=== PATIENT | male | born 1950 | race Caucasian/White ===

== ENCOUNTER 2024-01-02 23:50 | Inpatient (IN) | payer MEDICARE, SELFPAY ==
[2024-01-02 20:00] VITALS: BP 140/78
[2024-01-02 20:17] VITALS: BMI 29.5
[2024-01-02 20:36] LABS: % Basophils 0.2 % (0-2); % Eosinophils 3.3 % (0-6); % Immature Granulocytes 0.3 % (0-0.5); % Lymphocytes 8.2 % (20.5-51.1); % Monocytes 5.4 % (1.7-9.3); % Neutrophils 82.6 % (42.2-75.2); Absolute Eosinophils 0.2 10^3/uL (0-0.7); Absolute Lymphocytes 0.5 10^3/uL (1.2-3.4); Absolute Monocytes 0.4 10^3/uL (0.1-0.6); Absolute Neutrophils 5.3 10^3/uL (1.4-6.5); Hematocrit 43.2 % (39.0-52.0); Hemoglobin 14.4 g/dL (13.0-18.0); Mean Corp Hgb Conc. 33.3 g/dL (33.0-37.0); Mean Corpuscular Hgb 27.3 pg (27.0-31.0); Mean Platelet Volume 9.7 fL (7.4-10.4); Nucleated Red Blood Cells % 0 % (-); Platelet Count 255 10^3/uL (130-400); Red Blood Cell Count 5.27 10^6/uL (4.70-6.10); Red Cell Dist. Width 14.1 % (11.5-14.5); White Blood Cell Count 6.4 10^3/uL (4.8-10.8)
[2024-01-02 20:37] LABS: Urine Albumin Negative (Neg - Trace); Urine Bilirubin Negative (Negative); Urine Character Slightly Cloudy (Clear); Urine Color Yellow; Urine Glucose Negative (Negative); Urine Ketone Negative (Negative); Urine Leukocyte 2+ (Negative); Urine Nitrite Positive (Negative); Urine Occult Blood Trace (Negative); Urine Specific Gravity 1.015 (<1.030); Urine Urobilinogen Negative (Neg - 1+); Urine pH 6.5 (5.0-9.0)
[2024-01-02 20:43] LABS: Urine Amorphous Seen; Urine Bacteria Moderate (Negative); Urine Red Blood Cell 0-2 /HPF (0-2)
[2024-01-02 20:47] LABS: ALT (SGPT) 29 U/L (0-50); AST (SGOT) 34 U/L (17-59); Albumin 3.4 g/dl (3.5-5.0); Alkaline Phosphatase 129 U/L (38-126); Blood Urea Nitrogen 15 mg/dl (9-20); Calcium 8.7 mg/dl (8.4-10.2); Carbon Dioxide 27 mmol/L (22-30); Chloride 98 mmol/L (98-107); Estimated Creatinine Clearance 105 ml/min; Glucose 103 mg/dl (70-99); Potassium 3.9 mmol/L (3.5-5.1); Sodium 134 mmol/L (135-145); Total Bilirubin 0.7 mg/dl (0.2-1.3); Total Protein 6.1 g/dl (6.3-8.2); eGFR > 60.00
[2024-01-02 21:00] VITALS: BP 127/68
[2024-01-02 22:00] VITALS: BP 128/78
--- NOTE | 2024-01-02 23:33 | ED.GENMED ---
History of Present Illness
General
Chief Complaint: Urinary Symptoms
Source: patient and records
Exam Limitations: none
Time Seen by Provider: 01/02/24 22:23
Nursing documentation reviewed up to this point in time: agreed with
Travel History
Have you had any contact with someone who has COVID-19?: No
Do you have any symptoms of coronavirus? Fever > 100 degrees, chills, cough, shortness of breath, sore throat, loss of taste or smell, muscle aches, or headache?: No
History of Present Illness
History of Present Illness:
Patient is a 73-year-old male with a history of MS and urosepsis who presents to the emergency department complaining of feeling weak with a temperature of 99.4 today and dark urine that is malodorous. Patient admits to decreased appetite. Patient
denies any abdominal or back pain. Patient did have a suprapubic tube that is being converted to a Salmeron catheter. In August the patient presented similarly and ended up with urosepsis. Patient also admits to mild cough and sinus congestion.
Patient for the past few days has been weak and had difficulty moving from his wheelchair to bed which is unusual for him. Patient denies shortness of breath.
Past History
Past History
ED Past Medical History: Asthma, HTN, Hypercholesterolemia and Other (MS, wheelchair bound)
ED Past Surgical History: Appendectomy and Urological (Suprapubic 3-4 years ago)
Social History
Tobacco: Non-smoker
Alcohol: Occasional
Personal:
Living: with family
Review of Systems
Review of Systems
All Other Systems: ROS reviewed and negative except as documented in HPI and ROS
Constitutional: Reports fever, fatigue and chills
EENT: Reports runny nose
Respiratory: Reports cough; Denies trouble breathing
Cardiac: Reports no symptoms
ABD/GI: Reports anorexia; Denies abdominal pain, nausea, vomiting or diarrhea
: Reports dark urine and other (Indwelling Salmeron and malodorous urine)
Musculoskeletal: Reports no symptoms
Skin: Reports no symptoms
Neurological: Reports other (Generalized weakness otherwise unchanged)
Hematologic/Lymphatic: Reports no symptoms
Psychiatric: Reports depression (Patient's had an PR in October); Denies suicidal
Phy Exam
Physical Exam
Physical Exam:
Physical Exam
General: mild distress, alert and appropriate, well nourished, dry mucous membranes
HENT: Normocephalic, supple with no lymphadenopathy, no thyromegaly
Eyes: Clear sclera, conjuctiva without injection
Heart: Regular rhythm and rate. No S3, S4. No murmur. No NVD
Lungs: No respiratory distress, no stridor, lung sounds clear and equal bilaterally
Abdomen: Soft, nontender, no organomegaly, no CVA tenderness, BS good. Patient has indwelling Salmeron catheter and suprapubic wound is healed
Neuro: Unchanged
Skin: no rash
Psychiatric: well kept. interactive and cooperative
Extremities: No cyanosis, tenderness. Bilateral lower leg edema as well as pedal edema right greater than left
Course
Orders/Labs/Results
Orders:
Orders
01/02/24 20:27
Complete Blood Count/With Diff Urgent
Comprehensive Metabolic Panel Urgent
UA Reflex to Culture [Urinalysis Reflex To Culture] Urgent
Date Specimen was Collected: 01/02/24
Time Specimen was Collected: 20:19
Urine Microscopic Reflex Cult Urgent
Urine Culture Urgent
TOMMIE Source: U
Specimen Description:
Date Specimen was Collected: 01/02/24
Time Specimen was Collected: 20:19
01/02/24 23:31
Aztreonam [Azactam] 2,000 mg IV NOW STA
Gentamicin Sulfate [Gentamicin] 180 mg 0.9% Sodium Chloride [Nss] 50 ml IV NOW
01/02/24 23:33
NSS 1000mL Bolus WIDE OPEN 0.9% Sodium Chloride 1000 ml [Nss] 1,000 ml IV BOLUS
01/02/24 23:45
Lactic Acid Q4H
Comment: CANCEL 2nd LACTIC ACID IF 1st LACTIC ACID IS LESS THAN 2
Blood Culture Q30M
TOMMIE Source: Blood/Venous
Specimen Description:
01/03/24 00:15
Blood Culture Q30M
TOMMIE Source: Blood/Venous
Specimen Description:
01/03/24 03:45
Lactic Acid Q4H
Comment: CANCEL 2nd LACTIC ACID IF 1st LACTIC ACID IS LESS THAN 2
Abnormal Lab Results
01/02/24
20:27
Absolute Lymphs (auto) 0.5 L 10^3/uL
(1.2-3.4)
Neutrophils % 82.6 H %
(42.2-75.2)
Lymphocytes % 8.2 L %
(20.5-51.1)
Sodium 134 L mmol/L
(135-145)
Creatinine 0.5 L mg/dL
(0.7-1.3)
Glucose 103 H mg/dl
(70-99)
Alkaline Phosphatase 129 H U/L
(38-126)
Total Protein 6.1 L g/dl
(6.3-8.2)
Albumin 3.4 L g/dl
(3.5-5.0)
Ur Occult Blood Reflex Trace A
(Negative)
Urine Nitrite (Reflex) Positive A
(Negative)
Leukocyte Esterase Rfl 2+ A
(Negative)
Urine Bacteria (Reflex) Moderate A
(Negative)
01/02/24 20:27
01/02/24 20:27
Vital Signs
Initial and Last Documented VS:
Initial Vital Signs
Temp Pulse Resp BP Pulse Ox
98.2 F 88 18 140/78 95
01/02/24 20:00 01/02/24 20:00 01/02/24 20:00 01/02/24 20:00 01/02/24 20:00
Last Documented Vital Signs
Temp Pulse Resp BP Pulse Ox
98.2 F 96 16 128/78 92
01/02/24 20:00 01/02/24 22:30 01/02/24 22:30 01/02/24 22:00 01/02/24 22:30
*Radiology
Radiology exam reviewed: other (na)
*Pulse Oximetry
Patient hypoxic: no
*EKG
Interpreted by ED Provider?: NA
*Document Control Specialist Interpretation
Rate: Document Control Specialist- N/A
*Critical Care Note
Total Time (30-74mins, 75-104mins- exclusive of procedures): Not Applicable
Update Note
Update Note:
Patient does appear to have urinary tract infection. Patient is weak. Concerning patient's past history and cultures positive for Pseudomonas however sensitive only to IV medications will admit the patient.
ED Attending Note
-
Portions of this chart may have been created with voice recognition software.� Occasional wrong word or��sound alike� substitutions may have occurred due to the inherent limitations of voice recognition software.
Discharge Plan
Departure
Patient Disposition: Admit
Date of Disposition: 01/02/24
Time of Disposition: 23:38
Admit to: Telemetry
Admit to doctor: Hospitalist
Presentation/result/management discussed w/ accepting MD/DO: Hospitalist
Patient with high blood pressure during this ER visit?: No
Condition: Serious
Covid-19: Not Applicable
Discharge Problem:
Acute UTI, Catheter-associated urinary tract infection, Multiple sclerosis, Hypotension
Prescriptions:
No Action
furosemide [Lasix] 40 MG tablet
40 mg PO BID@0800,1700
venlafaxine [Effexor XR] 75 MG capsule,extended release 24hr
75 mg PO QPM
venlafaxine [Effexor XR] 150 MG capsule,extended release 24hr
150 mg PO DAILY
baclofen 20 MG tablet
40 mg PO TID
cholecalciferol (vitamin D3) [Vitamin D3] 1,000 UNIT capsule
2,000 unit PO DAILY
rosuvastatin 5 MG tablet
5 mg PO HS
dalfampridine [Ampyra] 10 MG tablet extended release 12 hr
10 mg PO BID
fluticasone propionate 50 mcg/actuation [place],Suspension
2 spray INTRANASAL HS
Theragen Tablet
1 tab PO DAILY
amlodipine [Norvasc] 2.5 mg Tablet
2.5 mg PO HS
zinc sulfate 50 mg zinc (220 mg) Tablet
50 mg PO DAILY
losartan 25 mg Tablet
25 mg PO DAILY
fluticasone propionate [Flovent] 110 mcg/actuation Hfa Aerosol Inhaler
2 puff INHALATION R BID
acetaminophen [Tylenol Extra Strength] 500 mg Tablet
1,000 mg PO Q6HPRN PRN (Reason: fever)
Referrals:
Regulo Bryson DO [Family Provider] -
Interventions
Interventions:
*Risk Screen - Suicide Last Done: 01/02/24 20:17
*General Assessment Last Done: 01/02/24 20:17
*Neglect/Abuse Screening Last Done: 01/02/24 20:17
ED- Fall Risk Assessment Last Done: 01/02/24 21:30
*ED COVID-19 Vaccine History Last Done: 01/02/24 20:17
ED-Male Genitourinary Assessment Last Done: 01/02/24 21:29
--- NOTE | 2024-01-02 23:47 | HPS.HSE ---
Addendum entered and electronically signed by Juan Way MD 01/03/24 00:13:
I saw and examined the patient.
The ZONING ASSISTANT or PA's note was reviewed and I agree with the note.
Comment:
HPI
73M HX MS, WC bound, chr FC pw weakness, malodorous urine that is darker than normal as well as weakness and low-grade fever. BP was low and UA suspicous for UTI. nl WCC.
PMHx
Multiple Sclerosis
Hypertension
Dyslipidemia
Asthma
Depression
Bullous Pemphigoid
PSHx
Appendectomy
Tonsillectomy
Suprapubic Catheter
SHx
Tobacco: Non-smoker
Alcohol: Occasional
Personal:
Living: With Family
Reviewed VS: Hypotensive noted POx low 90s on RA
PE
General: no acute distress
HEENT: dry mucous membranes
Neck : supple
Resp: decreased at bases
Cardiac: S1/S2 RRR No Murmur
GI: Soft, Non Distended
: penile F cath
MS: LE weakness , decreased muscle tone
Neuro: AO x 3
Psych - appropriate
Data
nl CBC
Na 134
nl Cr nl GFR
AKP 129
Alb 3.4
UA: cloudy, POS Nitrite POS LE WCC 6-10 Mod bacteria
UCx sent
Last hospitalist admission 09/09/23 - 09/17/23
DC Dxs:
1. Acute toxic metabolic encephalopathy.
2. Transient seizure.
3. Sepsis due to catheter associated urinary tract infection.
4. AKA.
5. Hyperkalemia.
6. Hyponatremia.
7. Multiple sclerosis.
ASSESSMENT & PLAN
CAUTI/ complicated UTI
Hypotension - clinical dehydrated , also took 2 doses of lasix
Chronic penile chr F cath
HX UTI with Providencia
HX failed attempted SPC placement pe last admission note
- Held Norvasc, Frusemide and Losartan
- IVF
- empiric IV CFTX
- Follow-up UCx
Hypotensive 90/40
Essential HTN
- Held Norvasc, Frusemide and Losartan
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
No active blisters
Multiple Sclerosis HX - stable.
No new symptoms / complaints.
- cont baclofen and Ampyra.
Asthma HX
- cont ICS and PRN albuterol.
Depression
- cont. Effexor.
DVT Prophylaxis: Lovenox
Code Status: DNR per patient
IP TLM
Original Note:
Family Physician
-
Family Physician: Regulo Bryson
Chief Complaint
-
Weakness, malodorous urine from Salmeron catheter
History of Present Illness
73-year-old male complaining of feeling weak with dark malodorous urine at home and a low-grade temp of 99.4. The patient is wheelchair-bound due to MS has a suprapubic catheter chronic. Patient does state he took his 2 doses of Lasix for his
bullous pemphigoid today.
Patient had history of display suprapubic catheter in August was unsuccessful with reinsertion and a Salmeron catheter penile was placed he was treated at that time for suprapubic catheter associated UTI August 2023 Providencia rettgeri with IV
ciprofloxacin then changed to Iv rocephin per ID recommendations. He is due to have a suprapubic catheter reattempted by [facility] urology but he is held off due to his having a recent heart attack. He denies current headache, fever,
chills, chest pain, palpitations, abdominal pain, nausea, vomiting, diarrhea, shortness of breath.
Medical History
Past Medical History
Past Medical History: Reports Other
Additional Past Medical History:
Multiple Sclerosis
Hypertension
Dyslipidemia
Asthma
Depression
Bullous Pemphigoid
Past Surgical History: Reports Other
Additional Past Surgical History:
Appendectomy
Tonsillectomy
Suprapubic Catheter Providencia rettgeri with IV ciprofloxacin per ID recommendations.
Social History
Tobacco: Non-smoker
Alcohol: Occasional
Personal:
Living: With Family
Family History
Family History: Not pertinent
Allergies / Home Medications
Allergies reflects when Allergies were last updated in [facility].
Home Medications with original date entered in [facility]
Allergy/Medication List:
Allergies
Allergy/AdvReac Type Severity Reaction Status Date / Time
NKDA Allergy Pharmacy Uncoded 01/03/24 00:03
to Review
Home Medications
baclofen 20 mg tablet 40 mg PO TID Pain 03/11/22
cholecalciferol (vitamin D3) 25 mcg (1,000 unit) capsule (Vitamin D3) 2,000 unit PO DAILY Supplement 03/11/22
dalfampridine 10 mg tablet,extended release,12 hr (Ampyra) 10 mg PO BID Neurological Condition 03/11/22
furosemide 40 mg tablet (Lasix) 40 mg PO BID@0800,1700 Fluid Retention/Swelling 03/11/22
rosuvastatin 5 mg tablet 5 mg PO HS High Cholesterol 03/11/22
venlafaxine 150 mg capsule,extended release 24 hr (Effexor XR) 150 mg PO DAILY Mental Health/Anxiety 03/11/22
venlafaxine 75 mg capsule,extended release 24 hr (Effexor XR) 75 mg PO QPM Mental Health/Anxiety 03/11/22
fluticasone propionate 50 mcg/actuation nasal spray,suspension 2 spray intranasal HS Allergies 04/23/23
acetaminophen 500 mg tablet (Tylenol Extra Strength) 1,000 mg PO Q6HPRN PRN fever 01/02/24
amlodipine 2.5 mg tablet (Norvasc) 2.5 mg PO HS 01/02/24
fluticasone propionate 110 mcg/actuation HFA aerosol inhaler 2 puff inhalation R BID 01/02/24
losartan 25 mg tablet 25 mg PO DAILY 01/02/24
therapeutic multivitamin 1 tab PO DAILY 01/02/24
zinc sulfate 50 mg zinc (220 mg) tablet 50 mg PO DAILY 01/02/24
Review of Systems
-
History Source: Patient
A 12 point ROS was completed and negative except as noted: Yes
Constitutional: Denies Fever or Chills
EENT: Denies Sore Throat or Runny Nose
Respiratory: Denies Cough or Trouble Breathing
Cardiac: Denies Chest Pain, Diaphoresis, Palpitations or Syncope
Abdomen/GI: Denies Abdominal Pain, Nausea, Vomiting, Diarrhea, Constipated or Bloody Stools
: Reports Salmeron (Dark urine/malodorous per patient)
Musculoskeletal: Reports Edema (Chronic bilateral +1 with history of bullous pemphigoid); Denies Joint Pain
Skin: Denies Itching or Rash
Neurological: Reports Weakness (Generalized); Denies Dizzy or Headache
Endocrine: Reports No Symptoms
Hematologic/Lymphatic: Reports No Symptoms
Psych: Reports Calm
Physical Exam
Vital Signs
Vital Signs
Temp Pulse Resp BP Pulse Ox
98.2 F 96 16 128/78 92
01/02/24 20:00 01/02/24 22:30 01/02/24 22:30 01/02/24 22:00 01/02/24 22:30
Physical Exam
General: Comfortable and Conversant; No Pain or Fever
HEENT: NormoCephalic, Anicteric, Moist mucous membranes, PERRLA, [place] Conjunctivae and No Ptosis
Respiratory: Clear; No Wheezes, Rales or Rhonchi
Cardiac: S1/S2 and Peripheral Edema (Chronic +1 nonpitting); No Murmur, Rub or Gallop
Breast: Deferred by me
GI: Soft, Non Tender, Non Distended, Normal Bowel Sounds and No Hepatosplenomegaly
Rectal: Deferred by Provider
Genito-urinary: Salmeron (Draining yellow in color)
Musculoskeletal: No Clubbing, No Cyanosis, Edema, Left Lower Extremity (+1 nonpitting) and Edema, Right Lower Extremity (+1 nonpitting); No Edema, Left Upper Extremity or Edema, Right Upper Extremity
Skin: Warm and Dry (Areas to lower legs no active bullous pemphigoid lesions)
Neuro: AO x 3, No Motor Deficits, Nonfocal/grossly intact, Cranial Nerves Intact and No Sensory Deficits; No Slurred Speech, Facial Droop or Tremors
Psych: Calm
Laboratory Results
-
01/02/24 20:27
01/02/24 20:27
Laboratory Results
Total Bilirubin 0.7 mg/dl (0.2-1.3) 01/02/24 20:27
AST 34 U/L (17-59) 01/02/24 20:27
ALT 29 U/L (0-50) 01/02/24 20:27
Alkaline Phosphatase 129 U/L (38-126) H 01/02/24 20:27
Impression/Plan
-
Impression/plan:
Admit to telemetry
#Symptomatic UTI
#Hx catheter associated UTI August 2023 Providencia rettgeri
Follow UA/ PEDIATRIC GENETIC COUNSELOR
-IV ceftriaxone
-IV NSS 80 cc times 1 L
-Tylenol as needed
-Follow CBC, BMP
#Multiple sclerosis/with muscle spasms
#Wheelchair-bound
-Continue Ampyra 10 mg twice daily, baclofen 40 mg 3 times daily
#Chronic leg edema 2/2 Bullous pemphigoid
Hold Lasix 40 mg twice daily
# Hypotension likely secondary to diuretic use/HTN�benign
128/78 > 90/79
-HOLD Norvasc 2.5 mg at bedtime
HOLD Losartan 25 mg daily
#HLD
-Continue Crestor 5 mg at bedtime
#Asthma�no acute exacerbation
#Anxiety/depression
-Cont Effexor 75 mg
DVT prophylaxis
Subcu Lovenox
DNR per patient
[2024-01-03] VITALS (8 sets, daily range): BP systolic 114–146; BP diastolic 68–88; PULSE 76–77; O2SAT 93–94; BMI 27.8
[2024-01-03] MEDS: NSS 1000 IV ×2 (00:21→01:39)
[2024-01-03] MEDS: ROCEPHIN 1000 MG IV ×2 (00:44→23:32)
[2024-01-03] MEDS: STERILE WATER FOR INJECTION 10 ML IV ×2 (00:44→23:36)
[2024-01-03 00:52] LABS: Lactic Acid 0.8 mmol/L (0.7-2.0)
--- NOTE | 2024-01-03 01:30 | PTCARENOTE ---
Pt arrived from ED on stretcher to bed. Pt is AAOx3, VSS, w/o complaints of pain, with wide open NS bolus running. Pt is oriented to room resting comfortably with call forrester within reach.
[2024-01-03 04:42] LABS: % Basophils 0.4 % (0-2); % Eosinophils 4.2 % (0-6); % Immature Granulocytes 0.2 % (0-0.5); % Lymphocytes 20.4 % (20.5-51.1); % Monocytes 9.3 % (1.7-9.3); % Neutrophils 65.5 % (42.2-75.2); Absolute Eosinophils 0.2 10^3/uL (0-0.7); Absolute Lymphocytes 0.9 10^3/uL (1.2-3.4); Absolute Monocytes 0.4 10^3/uL (0.1-0.6); Absolute Neutrophils 2.9 10^3/uL (1.4-6.5); Hematocrit 40.3 % (39.0-52.0); Hemoglobin 13.1 g/dL (13.0-18.0); Mean Corp Hgb Conc. 32.5 g/dL (33.0-37.0); Mean Corpuscular Hgb 27.3 pg (27.0-31.0); Mean Platelet Volume 9.6 fL (7.4-10.4); Nucleated Red Blood Cells % 0 % (-); Platelet Count 220 10^3/uL (130-400); Red Cell Dist. Width 13.9 % (11.5-14.5); White Blood Cell Count 4.5 10^3/uL (4.8-10.8)
[2024-01-03 05:05] LABS: Lactic Acid 0.7 mmol/L (0.7-2.0)
[2024-01-03 05:10] LABS: Blood Urea Nitrogen 13 mg/dl (9-20); Calcium 8.1 mg/dl (8.4-10.2); Carbon Dioxide 26 mmol/L (22-30); Chloride 101 mmol/L (98-107); Estimated Creatinine Clearance 105 ml/min; Glucose 92 mg/dl (70-99); Potassium 3.7 mmol/L (3.5-5.1); Sodium 135 mmol/L (135-145); eGFR > 60.00
[2024-01-03] MEDS: COZAAR 25 MG PO (09:13)
[2024-01-03] MEDS: LIORESAL 40 MG PO ×3 (09:13→20:46)
[2024-01-03] MEDS: THERAGRAN 1 TABLET PO (09:13)
[2024-01-03] MEDS: VITAMIN D3 (cholecalciferol) 50 MCG PO (09:13)
[2024-01-03] MEDS: EFFEXOR XR 150 MG PO (09:14)
[2024-01-03] MEDS: ZINC SULFATE 220 MG PO (09:14)
--- NOTE | 2024-01-03 11:57 | W.PN.HOSP.TC ---
Today's Communication/Plan
-
await culture data
dc IVF
iv abx
Assessment / Plan
Assessment / Plan
General: Comfortable and Conversant; No Pain or Fever
HEENT: NormoCephalic, Anicteric, Moist mucous membranes, PERRLA, [place] Conjunctivae and No Ptosis
Respiratory: Clear; No Wheezes, Rales or Rhonchi
Cardiac: S1/S2 and Peripheral Edema (Chronic +1 nonpitting); No Murmur, Rub or Gallop
Breast: Deferred by me
GI: Soft, Non Tender, Non Distended, Normal Bowel Sounds and No Hepatosplenomegaly
Rectal: Deferred by Provider
Genito-urinary: Salmeron (Draining yellow in color)
Musculoskeletal: No Clubbing, No Cyanosis, Edema, Left Lower Extremity (+1 nonpitting) and Edema, Right Lower Extremity (+1 nonpitting); No Edema, Left Upper Extremity or Edema, Right Upper Extremity
Skin: Warm and Dry (Areas to lower legs no active bullous pemphigoid lesions)
Neuro: AO x 3, No Motor Deficits, Nonfocal/grossly intact, Cranial Nerves Intact and No Sensory Deficits; No Slurred Speech, Facial Droop or Tremors
Psych: Calm
#Symptomatic UTI
#Hx catheter associated UTI August 2023 Providencia rettgeri
Follow UA/ PRODUCTION SUPPORT DEVELOPER
-IV ceftriaxone
-DC ivf.
-Tylenol as needed
-Follow CBC, BMP
#Multiple sclerosis/with muscle spasms
#Wheelchair-bound
-Continue Ampyra 10 mg twice daily, baclofen 40 mg 3 times daily
-may require placemnet
#Chronic leg edema 2/2 Bullous pemphigoid
Hold Lasix 40 mg twice daily
# Hypotension likely secondary to diuretic use/HTN�benign
-BP improving
-will restart bp meds in am
#HLD
-Continue Crestor 5 mg at bedtime
#Asthma�no acute exacerbation
#Anxiety/depression
-Cont Effexor 75 mg
DVT prophylaxis
Subcu Lovenox
Anticipated Discharge: 24 - 48 hours
Subjective/Interval History
-
Date of Service: January 03, 2024
states feeling better today
Objective Data
-
Labs:
Laboratory Results
01/03/24
04:31
WBC 4.5 L
Hgb 13.1
Hct 40.3
Plt Count 220
Sodium 135
Potassium 3.7
Chloride 101
Carbon Dioxide 26
BUN 13
Creatinine 0.5 L
Glucose 92
Calcium 8.1 L
Vital Signs:
Vital Signs
Temp Pulse Resp BP Pulse Ox
98.4 F 86 16 137/68 95
01/03/24 07:55 01/03/24 09:13 01/03/24 08:37 01/03/24 09:13 01/03/24 08:37
I&O
01/02/24 01/03/24 01/04/24
06:59 06:59 06:59
Intake Total 480 / 480
Output Total 600 / 600
Balance -120 / -120
--- NOTE | 2024-01-03 15:02 | CM ---
MEt with patient who is admitted from home with chronic galvan. He was current with [facility] RN to change his galvan every 4-5 weeks.
He lives with who is his caregiver. There is ramp into on level home. He has walk in shower with shower seat, rails. Also w/c and 3 in 1 commode.
He would like to have PT OT added to [facility] as he feels he has had a decline in strength from UTI and would like to get back to his baseline.
Referral put in allscripts to [facility].
PCP Dr. Regulo Beck
Pharmacy: [facility]
PLAN: home with [facility] home care assistant PT OT.
[2024-01-03] MEDS: LOVENOX 40 MG SC (17:13)
[2024-01-03] MEDS: EFFEXOR XR 75 MG PO (17:13)
[2024-01-03] MEDS: CRESTOR 5 MG PO (20:46)
[2024-01-03] MEDS: NORVASC 2.5 MG PO (20:46)
[2024-01-03] MEDS: SENOKOT 8.59999999999999964 MG PO (20:47)
[2024-01-04 07:33] LABS: % Basophils 0.8 % (0-2); % Eosinophils 7.5 % (0-6); % Immature Granulocytes 0.5 % (0-0.5); % Monocytes 10.6 % (1.7-9.3); % Neutrophils 56.6 % (42.2-75.2); Absolute Basophils 0.1 10^3/uL (0-0.2); Absolute Eosinophils 0.5 10^3/uL (0-0.7); Absolute Lymphocytes 1.5 10^3/uL (1.2-3.4); Absolute Monocytes 0.7 10^3/uL (0.1-0.6); Absolute Neutrophils 3.6 10^3/uL (1.4-6.5); Hematocrit 40.9 % (39.0-52.0); Hemoglobin 13.2 g/dL (13.0-18.0); Mean Corp Hgb Conc. 32.3 g/dL (33.0-37.0); Mean Corpuscular Hgb 27.5 pg (27.0-31.0); Mean Corpuscular Volume 85.2 fL (80.0-94.0); Mean Platelet Volume 9.9 fL (7.4-10.4); Nucleated Red Blood Cells % 0 % (-); Platelet Count 232 10^3/uL (130-400); White Blood Cell Count 6.3 10^3/uL (4.8-10.8)
[2024-01-04 07:49] VITALS: BP 136/84
[2024-01-04 08:05] LABS: Blood Urea Nitrogen 13 mg/dl (9-20); Calcium 8.7 mg/dl (8.4-10.2); Carbon Dioxide 26 mmol/L (22-30); Chloride 106 mmol/L (98-107); Estimated Creatinine Clearance 105 ml/min; Glucose 92 mg/dl (70-99); Potassium 3.7 mmol/L (3.5-5.1); Sodium 135 mmol/L (135-145); eGFR > 60.00
[2024-01-04] MEDS: LIORESAL 40 MG PO (09:03)
[2024-01-04] MEDS: COZAAR 25 MG PO (09:03)
[2024-01-04] MEDS: ZINC SULFATE 220 MG PO (09:03)
[2024-01-04] MEDS: VITAMIN D3 (cholecalciferol) 50 MCG PO (09:04)
[2024-01-04] MEDS: EFFEXOR XR 150 MG PO (09:04)
[2024-01-04] MEDS: THERAGRAN 1 TABLET PO (09:05)
--- NOTE | 2024-01-04 11:15 | W.PN.HOSP.TC ---
Today's Communication/Plan
-
Continue with IV antibiotic
Await culture data
restart lasix
home once ready
Assessment / Plan
Assessment / Plan
General: Comfortable and Conversant; No Pain or Fever
HEENT: NormoCephalic, Anicteric, Moist mucous membranes, [place] Conjunctivae and No Ptosis
Respiratory: Clear; No Wheezes, Rales or Rhonchi
Cardiac: S1/S2 and Peripheral Edema (Chronic +1 nonpitting); No Murmur, Rub or Gallop
GI: Soft, Non Tender, Non Distended, Normal Bowel Sounds and No Hepatosplenomegaly
Rectal: Deferred by Provider
Genito-urinary: Salmeron (Draining yellow in color)
Musculoskeletal: No Clubbing, No Cyanosis, Edema, Left Lower Extremity (+1 nonpitting) and Edema, Right Lower Extremity (+1 nonpitting); No Edema, Left Upper Extremity or Edema, Right Upper Extremity
Skin: Warm and Dry (Areas to lower legs no active bullous pemphigoid lesions)
Neuro: AO x 3, No Motor Deficits, Nonfocal/grossly intact, Cranial Nerves Intact and No Sensory Deficits; No Slurred Speech, Facial Droop or Tremors
Psych: Calm
#Symptomatic UTI
#Hx catheter associated UTI August 2023 Providencia rettgeri
-IV ceftriaxone
-DC ivf.
-Tylenol as needed
-Blood cutlure negative so far
-await Ucx
#Multiple sclerosis/with muscle spasms
#Wheelchair-bound
-Continue Ampyra 10 mg twice daily, baclofen 40 mg 3 times daily
#Chronic leg edema 2/2 Bullous pemphigoid
-restart Lasix 40 mg twice daily
# Hypotension likely secondary to diuretic use/HTN�benign
-BP improving
-restarted home losartan. cont norvasc.
#HLD
-Continue Crestor 5 mg at bedtime
#Asthma�no acute exacerbation
#Anxiety/depression
-Cont Effexor 75 mg
DVT prophylaxis
Subcu Lovenox
PT/OT-Pt prefers home vn/therapy.
Anticipated Discharge: Within 24 hours
Subjective/Interval History
-
Date of Service: January 04, 2024
feeling better
afebrile
tolerating diet
Objective Data
-
Labs:
Laboratory Results
01/04/24
07:07
WBC 6.3
Hgb 13.2
Hct 40.9
Plt Count 232
Sodium 135
Potassium 3.7
Chloride 106
Carbon Dioxide 26
BUN 13
Creatinine 0.5 L
Glucose 92
Calcium 8.7
Vital Signs:
Vital Signs
Temp Pulse Resp BP Pulse Ox
98.1 F 78 16 136/84 96
01/04/24 07:49 01/04/24 09:03 01/04/24 07:54 01/04/24 09:03 01/04/24 07:54
I&O
01/03/24 01/04/24 01/05/24
06:59 06:59 06:59
Intake Total 480 / 480 2270 / 2270
Output Total 600 / 600 2725 / 2725
Balance -120 / -120 -455 / -455
[2024-01-04 11:45] VITALS: BP 126/78
--- NOTE | 2024-01-04 12:29 | W.DCSUMMARY ---
Discharge Summary
Discharge Data
Date of Admission: 01/02/24
Date of Discharge: 01/04/24
-
Pending Results: No
Hospital Course
74 male past medical history of multiple sclerosis with muscle spasm, wheelchair-bound, chronic leg edema secondary bullous pemphigoid, hyperlipidemia, asthma, anxiety, depression, chronic Salmeron catheter who is presented with weakness and malodorous
urine. Patient was found to be severely hypotensive and a Lasix was held on admission. Patient was started on IV fluid resuscitation. Blood cultures were sent and were found to be negative. Patient was started on antibiotics for suspicious of
urinary tract infection. UA was not impressive. Urine culture with contamination. Patient WBC count within normal limits. Patient was afebrile. White count within normal limits. Antibiotics were discontinued. Patient was read by PT and OT.
Patient would like to go home with VN. Blood pressure meds were restarted. Lasix was restarted. Patient was tolerating diet. Patient be discharged home with VN.
Discharge Plan
-
Patient Disposition: Home with Home Care
Discharge Diagnosis/Procedures: Dehydration
weakness
Condition: Fair
Diet: Regular
Activity: With assistance and As tolerated
Driving Restrictions: Not until seen by your Dr
Other Services: VN
Referrals:
Regulo Bryson DO [Family Provider] - in less than 1 week
Prescriptions:
Continued
furosemide [Lasix] 40 MG tablet
40 mg PO BID@0800,1700
venlafaxine [Effexor XR] 75 MG capsule,extended release 24hr
75 mg PO QPM
venlafaxine [Effexor XR] 150 MG capsule,extended release 24hr
150 mg PO DAILY
baclofen 20 MG tablet
40 mg PO TID
cholecalciferol (vitamin D3) [Vitamin D3] 1,000 UNIT capsule
2,000 unit PO DAILY
rosuvastatin 5 MG tablet
5 mg PO HS
dalfampridine [Ampyra] 10 MG tablet extended release 12 hr
10 mg PO BID
fluticasone propionate 50 mcg/actuation [place],Suspension
2 spray INTRANASAL HS
therapeutic multivitamin Tablet
1 tab PO DAILY
amlodipine [Norvasc] 2.5 mg Tablet
2.5 mg PO HS
zinc sulfate 50 mg zinc (220 mg) Tablet
50 mg PO DAILY
losartan 25 mg Tablet
25 mg PO DAILY
fluticasone propionate 110 mcg/actuation Hfa Aerosol Inhaler
2 puff INHALATION R BID
acetaminophen [Tylenol Extra Strength] 500 mg Tablet
1,000 mg PO Q6HPRN PRN (Reason: fever)
Discharge Orders:
Discharge Patient (As Directed); Ordered 01/04/24
Ordered By: Niraj Harris
--- NOTE | 2024-01-04 13:56 | CM ---
Addendum entered by Laisha Collazo 01/04/24 14:11:
Met with patient at bedside
IMM explained and signed
Plan: discharge to home; son will transport home; patient will resume home health services with [facility]; [facility] notified if discharge date via [facility]
Original Note:
Spoke with patient's via phone; she reported that son would transport patient home via private car
[2024-01-05 19:25] LABS: Hepatitis C Antibody Negative (Negative)
== END 2024-01-04 15:25 | disposition home health service (06) | DRG 699 ==
LOC: 4 EAST ACU 23:50
PROVIDERS: Clinical Nurse Specialist Family Health; Emergency Medicine; ADMITTING PHYSICIAN Internal Medicine; ATTENDING PHYSICIAN Hospitalist; EMERGENCY PHYSICIAN Emergency Medicine; FAMILY PHYSICIAN Family Medicine
DX: T83.511A Infection and inflammatory reaction due to indwelling urethral catheter, initial encounter (principal); L12.0 Bullous pemphigoid; E86.0 Dehydration; N39.0 Urinary tract infection, site not specified; I95.9 Hypotension, unspecified; G35 Multiple sclerosis; E78.00 Pure hypercholesterolemia, unspecified; I10 Essential (primary) hypertension; J45.909 Unspecified asthma, uncomplicated; Y73.2 Prosthetic and other implants, materials and accessory gastroenterology and urology devices associated with adverse incidents; Y92.9 Unspecified place or not applicable; F32.A Depression, unspecified; M62.838 Other muscle spasm; R60.0 Localized edema; F41.9 Anxiety disorder, unspecified; T50.2X5A Adverse effect of carbonic-anhydrase inhibitors, benzothiadiazides and other diuretics, initial encounter; Z66 Do not resuscitate; I25.2 Old myocardial infarction; Z79.51 Long term (current) use of inhaled steroids; Z87.440 Personal history of urinary (tract) infections; Z99.3 Dependence on wheelchair
CPT/HCPCS: 80048; 80053; 81003; 81015; 83605; 85025; 86803; 87040; 87070; 87086; 94640; 96361; 96374; 96375; 97162; 97167; 99284

== ENCOUNTER 2024-04-01 23:48 | Inpatient (IN) | payer MEDICARE, SELFPAY ==
[2024-04-01] VITALS (8 sets, daily range): BP systolic 110–146; BP diastolic 53–101; BMI 28.8
[2024-04-01 15:47] LABS: Urine Albumin Trace (Neg - Trace); Urine Bilirubin Negative (Negative); Urine Character Clear (Clear); Urine Color Yellow; Urine Glucose Negative (Negative); Urine Ketone Negative (Negative); Urine Leukocyte 2+ (Negative); Urine Nitrite Positive (Negative); Urine Occult Blood 3+ (Negative); Urine Urobilinogen Negative (Neg - 1+)
[2024-04-01 16:03] LABS: Urine Squamous Cell 0-2 /LPF (Few)
[2024-04-01 16:05] LABS: Urine Bacteria Many (Negative); Urine Red Blood Cell 26-30 /HPF (0-2); Urine White Cell 16-20 /HPF (0-5)
--- NOTE | 2024-04-01 20:16 | ED.GENMED ---
History of Present Illness
General
Chief Complaint: Musculo-Skeletal Complaint
Source: patient
Time Seen by Provider: 04/01/24 19:12
Travel History
Have you had any contact with someone who has COVID-19?: No
Do you have any symptoms of coronavirus? Fever > 100 degrees, chills, cough, shortness of breath, sore throat, loss of taste or smell, muscle aches, or headache?: No
History of Present Illness
History of Present Illness:
73-year-old male with past medical history of MS, seizure, hypertension, hyperlipidemia, neurogenic bladder with chronic indwelling Salmeron catheter presenting to the emergency department for evaluation for 2 separate issues. First concern was a
possible fall about a week and a half ago resulting in right knee pain and persistent edema. Patient states that overall he is not really sure how he injured the knee and does not really remember falling but is unsure as to how he injured the knee.
Patient states that he is mostly wheelchair-bound but will often pivot out of bed and use supportive devices to get into his wheelchair. He denies any weakness or numbness to his legs and is denying any headaches, vomiting or visual changes.
Second concern is patient believes he may have a urinary tract infection because his told him that his urine smells funny or than normal. He notes that he was recently at [facility] for urinary tract infection and ultimately ended up
being admitted for sepsis.
Past History
Past History
ED Past Medical History: Asthma, HTN, Hypercholesterolemia and Other (MS, wheelchair bound)
ED Past Surgical History: Appendectomy, Tonsilectomy and Urological (Suprapubic 3-4 years ago)
Social History
Tobacco: Non-smoker
Alcohol: Occasional
Drug: None
Personal:
Living: with family
Review of Systems
Review of Systems
All Other Systems: ROS reviewed and negative except as documented in HPI and ROS
Phy Exam
Physical Exam
Physical Exam:
GENERAL: Alert , in no apparent distress
Head: Normocephalic atraumatic
EYE: Clear conjunctiva
NECK: Supple
ENT: o/p clr, mmm.
CARDIAC: Regular rate and rhythm .
LUNGS: Clear breath sounds bilaterally, no acute respiratory distress, no wheezes/rales/rhonchi
ABDOMEN: Soft, without focal tenderness, no r/g, no cvat, suprapubic tube in place
NEUROLOGICAL: Alert and oriented but does seem to answer questions slowly but appropriately
SKIN: Warm and dry, skin intact.
MUSCULOSKELETAL: No edema, well perfused.
PSYCH: Normal and appropriate interaction.
Scores
Heart Failure Risk
Heart Failure Risk Score: Not Applicable
Heart Score for Chest Pain Patients
STEMI patient?: Not applicable
Withdrawal Assessment of Alcohol
Withdrawal Assessment Completed?: Not applicable
Course
Orders/Labs/Results
Orders:
Orders
04/01/24 15:36
Knee, Right 4 or More Views [CR Knee- Right 4 Or More View*] Urgent
Comment:
Reason For Exam: pain
04/01/24 15:39
Urinalysis Reflex To Culture Urgent
Date Specimen was Collected: 04/01/24
Time Specimen was Collected: 15:38
Urine Microscopic Reflex Cult Urgent
Urine Culture Urgent
TOMMIE Source: U
Specimen Description:
Date Specimen was Collected: 04/01/24
Time Specimen was Collected: 15:38
04/01/24 20:40
Basic Metabolic Panel Urgent
Complete Blood Count/With Diff Urgent
Lactic Acid Q4H
Comment: CANCEL 2nd LACTIC ACID IF 1st LACTIC ACID IS LESS THAN 2
Blood Culture Q30M
TOMMIE Source: Blood/Venous
Specimen Description:
04/01/24 21:14
CefTRIAXone [Rocephin] 1,000 mg IV NOW STA
04/01/24 22:42
Blood Culture Q30M
TOMMIE Source: Blood/Venous
Specimen Description:
04/01/24 23:45
Lactic Acid Q4H
Comment: CANCEL 2nd LACTIC ACID IF 1st LACTIC ACID IS LESS THAN 2
Abnormal Lab Results
04/01/24 04/01/24
15:39 20:40
WBC 14.6 H 10^3/uL
(4.8-10.8)
RBC 4.08 L 10^6/uL
(4.70-6.10)
Hgb 10.4 L g/dL
(13.0-18.0)
Hct 32.8 L %
(39.0-52.0)
MCH 25.5 L pg
(27.0-31.0)
MCHC 31.7 L g/dL
(33.0-37.0)
RDW 14.7 H %
(11.5-14.5)
Plt Count 486 H 10^3/uL
(130-400)
Abs Immat Gran (auto) 0.1 H 10^3/uL
(0-0.05)
Absolute Neuts (auto) 11.6 H 10^3/uL
(1.4-6.5)
Absolute Monos (auto) 1.0 H 10^3/uL
(0.1-0.6)
Neutrophils % 79.3 H %
(42.2-75.2)
Lymphocytes % 10.3 L %
(20.5-51.1)
Sodium 131 L mmol/L
(135-145)
Creatinine 0.5 L mg/dL
(0.7-1.3)
Glucose 105 H mg/dl
(70-99)
Ur Occult Blood Reflex 3+ A
(Negative)
Urine Nitrite (Reflex) Positive A
(Negative)
Leukocyte Esterase Rfl 2+ A
(Negative)
Urine RBC 26-30 A /HPF
(0-2)
Urine WBC (Reflex) 16-20 A /HPF
(0-5)
Urine Bacteria (Reflex) Many A
(Negative)
04/01/24 20:40
04/01/24 20:40
Vital Signs
Initial and Last Documented VS:
Initial Vital Signs
Temp Pulse Resp BP Pulse Ox
99.3 F 100 20 130/80 97
04/01/24 15:25 04/01/24 15:25 04/01/24 15:25 04/01/24 15:25 04/01/24 15:25
Last Documented Vital Signs
Temp Pulse Resp BP Pulse Ox
99.2 F 105 20 120/101 92
04/01/24 16:00 04/01/24 16:00 04/01/24 16:00 04/01/24 22:00 04/01/24 21:45
Procedures
Splinting/Sling Placement
Right Leg:
Procedure completed by: Harpal
Pre-splint extermity exam: neurovascular intact
Type of splint: posterior long leg
Splint material: other (4in orthoglass)
Splint checked by provider?: Yes
Normal distal neurovascular exam?: Yes
MDM/Problems Addressed
Differential Diagnosis Includes:
Contusion, fracture, sprain of the right knee urinary tract infection, recurrent sepsis
MDM/Problems Addressed:
73-year-old male presenting emergency department for evaluation for a multitude of concerns. X-ray of the knee was ordered from triage and ultimately does confirm suspicion for fracture of the proximal tibia and fibula. Will consult with
orthopedics for this based off location of the injury but due to patient's already poor mobility may not be a great candidate for surgery. Urinalysis was also sent which reveals nitrite positive urine, 2+ leukocytes, 16-20 WBCs. Patient is
borderline tachycardic and has a low-grade temperature of 99.3 so lab work was added by me. Disposition pending. Will also contact patient's as he has no family present with him.
Chronic conditions affecting care: Neurological disorder
Acute Exacerbation and/or Progression of Chronic Illness: Neurological disorder
*Radiology
Radiology exam reviewed: preliminary read by ED provider (Proximal tib-fib fracture)
*Pulse Oximetry
Patient hypoxic: no
*Critical Care Note
Total Time (30-74mins, 75-104mins- exclusive of procedures): Not Applicable
Data Reviewed
Review of Other/Old Records Reveals: Labs and Records
Source: patient, records and spouse
Patient Management
Discussion with other providers: Hospitalist and Rubber Goods Supervisor
Escalation/DeEscalation of care consider admission/obs:
7:20 PM: Case was discussed with on-call orthopedic surgeon, Dr. Cook, he states would not recommend surgery but would put patient in a long-leg posterior splint and follow-up as an outpatient if patient is discharged.
I called and spoke to patient's who states that patient fell on Friday while trying to get up from his commode. She has been having a difficult time caring for him as he already has baseline ambulatory difficulties but with his now known
fracture she has been having significantly more difficulties caring for him. Patient also has a urinary tract infection. He had a recent admission at [facility] due to UTI sepsis. He has a 99.3 temperature here, 14,000 white blood cell count source
and it does not appear that patient would be safe to be discharged home. Will admit for further management of urinary tract infection. Orthopedics can be consulted as needed for the fracture. Hospitalist team is aware and accepts for continued
evaluation and treatment.
ED Attending Note
-
Portions of this chart may have been created with voice recognition software.� Occasional wrong word or��sound alike� substitutions may have occurred due to the inherent limitations of voice recognition software.
Discharge Plan
Departure
Patient Disposition: Admit
Date of Disposition: 04/01/24
Time of Disposition: 21:16
Presentation/result/management discussed w/ accepting MD/DO: Hospitalist
Discharge Problem:
Acute UTI, Closed fracture of proximal end of right tibia, Closed fracture of proximal end of right fibula
Prescriptions:
No Action
furosemide [Lasix] 40 MG tablet
40 mg PO BID@0800,1700
venlafaxine [Effexor XR] 75 MG capsule,extended release 24hr
75 mg PO QPM
venlafaxine [Effexor XR] 150 MG capsule,extended release 24hr
150 mg PO DAILY
baclofen 20 MG tablet
40 mg PO TID
cholecalciferol (vitamin D3) [Vitamin D3] 1,000 UNIT capsule
2,000 unit PO DAILY
rosuvastatin 5 MG tablet
5 mg PO HS
dalfampridine [Ampyra] 10 MG tablet extended release 12 hr
10 mg PO BID
fluticasone propionate 50 mcg/actuation [place],Suspension
2 spray INTRANASAL HS
therapeutic multivitamin Tablet
1 tab PO DAILY
amlodipine [Norvasc] 2.5 mg Tablet
2.5 mg PO HS
zinc sulfate 50 mg zinc (220 mg) Tablet
50 mg PO DAILY
losartan 25 mg Tablet
25 mg PO DAILY
fluticasone propionate 110 mcg/actuation Hfa Aerosol Inhaler
2 puff INHALATION R BID
acetaminophen [Tylenol Extra Strength] 500 mg Tablet
1,000 mg PO Q6HPRN PRN (Reason: fever)
Referrals:
Regulo Bryson DO [Family Provider] -
Interventions
Interventions:
*Risk Screen - Suicide Last Done: 04/01/24 15:25
*General Assessment Last Done: 04/01/24 15:25
*Neglect/Abuse Screening Last Done: 04/01/24 15:25
ED-Musculoskeletal Assessment Last Done: 04/01/24 16:19
Discharge Date and Time
Print Language: SALVADOREAN
[2024-04-01 20:48] LABS: % Basophils 0.5 % (0-2); % Eosinophils 2.6 % (0-6); % Immature Granulocytes 0.4 % (0-0.5); % Lymphocytes 10.3 % (20.5-51.1); % Monocytes 6.9 % (1.7-9.3); % Neutrophils 79.3 % (42.2-75.2); Absolute Basophils 0.1 10^3/uL (0-0.2); Absolute Eosinophils 0.4 10^3/uL (0-0.7); Absolute Immature Granulocytes 0.1 10^3/uL (0-0.05); Absolute Lymphocytes 1.5 10^3/uL (1.2-3.4); Absolute Neutrophils 11.6 10^3/uL (1.4-6.5); Hematocrit 32.8 % (39.0-52.0); Hemoglobin 10.4 g/dL (13.0-18.0); Mean Corp Hgb Conc. 31.7 g/dL (33.0-37.0); Mean Corpuscular Hgb 25.5 pg (27.0-31.0); Mean Corpuscular Volume 80.4 fL (80.0-94.0); Mean Platelet Volume 9.3 fL (7.4-10.4); Nucleated Red Blood Cells % 0 % (-); Platelet Count 486 10^3/uL (130-400); Red Blood Cell Count 4.08 10^6/uL (4.70-6.10); Red Cell Dist. Width 14.7 % (11.5-14.5); White Blood Cell Count 14.6 10^3/uL (4.8-10.8)
[2024-04-01 21:00] LABS: Lactic Acid 0.9 mmol/L (0.7-2.0)
[2024-04-01 21:04] LABS: Blood Urea Nitrogen 16 mg/dl (9-20); Calcium 9.3 mg/dl (8.4-10.2); Carbon Dioxide 26 mmol/L (22-30); Chloride 98 mmol/L (98-107); Estimated Creatinine Clearance 105 ml/min; Glucose 105 mg/dl (70-99); Potassium 4.2 mmol/L (3.5-5.1); Sodium 131 mmol/L (135-145); eGFR > 60.00
[2024-04-01] MEDS: ROCEPHIN 1000 MG IV (22:43)
--- NOTE | 2024-04-01 23:58 | HPS.HSE ---
Family Physician
-
Family Physician: Regulo Bryson
Chief Complaint
-
R Knee Pain
History of Present Illness
Patient is a 73y M with PMH significant for multiple sclerosis, hypertension and depression who presents to ED complaining of right knee pain and swelling. Patient states that his symptoms have been present and persistent for the past week or
so. He notes pain with weight bearing, pivoting and from pressure against the arms of chairs / seats / in the car / etc.
Patient states that he suffered a fall at home about 2 weeks ago. He states that he was transferring from the toilet to the bed when he fell backwards. He did not land on the knee, but notes that his leg was somewhat twisted / under the bed at the
time of the fall. He has noted the increased pain in the knee since that time. No other apparent trauma or injury.
Patient is wheelchair bound due to his MS. He transfers from chair to furniture, toilet, etc - usually without much assistance. He drives using hand controls.
He also has an indwelling suprapubic catheter and notes that his thought his urine this AM smelled malodorous.
Medical History
Past Medical History
Past Medical History: Reports Other
Additional Past Medical History:
Multiple Sclerosis
Hypertension
Dyslipidemia
Asthma
Depression
Bullous Pemphigoid
Past Surgical History: Reports Other
Additional Past Surgical History:
Appendectomy
Tonsillectomy
Suprapubic Catheter
Social History
Tobacco: Non-smoker
Alcohol: Occasional
Personal:
Living: With Family
Family History
Family History: Not pertinent
Allergies / Home Medications
Allergies reflects when Allergies were last updated in [facility].
Home Medications with original date entered in [facility]
Allergy/Medication List:
Allergies
Allergy/AdvReac Type Severity Reaction Status Date / Time
Sulfa (Sulfonamide Allergy Unknown Verified 04/01/24 15:24
Antibiotics)
Home Medications
baclofen 20 mg tablet 40 mg PO TID Pain 03/11/22
cholecalciferol (vitamin D3) 25 mcg (1,000 unit) capsule (Vitamin D3) 2,000 unit PO DAILY Supplement 03/11/22
dalfampridine 10 mg tablet,extended release,12 hr (Ampyra) 10 mg PO BID Neurological Condition 03/11/22
furosemide 40 mg tablet (Lasix) 40 mg PO BID@0800,1700 Fluid Retention/Swelling 03/11/22
rosuvastatin 5 mg tablet 5 mg PO HS High Cholesterol 03/11/22
venlafaxine 150 mg capsule,extended release 24 hr (Effexor XR) 150 mg PO DAILY Mental Health/Anxiety 03/11/22
venlafaxine 75 mg capsule,extended release 24 hr (Effexor XR) 75 mg PO QPM Mental Health/Anxiety 03/11/22
fluticasone propionate 50 mcg/actuation nasal spray,suspension 2 spray intranasal HS Allergies 04/23/23
acetaminophen 500 mg tablet (Tylenol Extra Strength) 1,000 mg PO Q6HPRN PRN fever 01/02/24
amlodipine 2.5 mg tablet (Norvasc) 2.5 mg PO HS 01/02/24
fluticasone propionate 110 mcg/actuation HFA aerosol inhaler 2 puff inhalation R BID 01/02/24
losartan 25 mg tablet 25 mg PO DAILY 01/02/24
therapeutic multivitamin 1 tab PO DAILY 01/02/24
zinc sulfate 50 mg zinc (220 mg) tablet 50 mg PO DAILY 01/02/24
Review of Systems
-
History Source: Patient
A 12 point ROS was completed and negative except as noted: Yes
Constitutional: Reports Fever and Fatigue; Denies Chills
EENT: Denies Sore Throat
Respiratory: Denies Cough or Trouble Breathing
Cardiac: Denies Chest Pain or Palpitations
Abdomen/GI: Reports Constipated; Denies Abdominal Pain, Nausea, Vomiting, Diarrhea or Bloody Stools
: Reports Suprapubic Tube and Other (Malodor); Denies Dysuria or Flank Pain
Musculoskeletal: Reports Joint Pain (R knee)
Neurological: Reports Weakness; Denies Dizzy or Headache
Psych: Reports Depression; Denies Anxiety
Physical Exam
Vital Signs
Vital Signs
Temp Pulse Resp BP Pulse Ox
99.2 F 105 20 110/53 94
04/01/24 16:00 04/01/24 16:00 04/01/24 16:00 04/01/24 23:00 04/01/24 23:01
Physical Exam
General: Other (73y M in no acute distress.)
HEENT: Moist mucous membranes and PERRLA
Respiratory: Clear; No Wheezes, Rales or Rhonchi
Cardiac: S1/S2 and Regular Rhythm; No Murmur
GI: Soft, Non Tender, Non Distended and Normal Bowel Sounds
Genito-urinary: Other (SPC site without bleeding or discharge.)
Musculoskeletal: Other (RLE with ADITYA wrap / immobilizer in place. Pos tenderness R knee.)
Neuro: AO x 3
Laboratory Results
-
04/01/24 20:40
04/01/24 20:40
Laboratory Results
Lactic Acid Cancelled 04/01/24 23:45
Impression/Plan
-
A/P: Patient is a 73y M with PMH significant for MS, hypertension and depression who presents to ED complaining of R knee pain x 1-2 weeks.
Right Tib-Fib Fracture
- Admit for further evaluation and treatment.
- Likely non-operative management as fracture is non-displaced and patient is wheelchair bound at baseline.
- Ortho evaluation.
- Immobilize, pain control, etc.
Chronic SPC
CAUTI
- UA suspicious for UTI and reportedly with change in urine quality noted today.
- IV abx for now pending culture data.
Chronic Constipation
- Patient states that last BM was several days ago.
- Intensify bowel regimen and follow for results.
Multiple Sclerosis
- Stable. No new symptoms / complaints.
- Continue baclofen and Ampyra.
Benign Hypertension
- Stable. Continue outpatient med regimen.
Asthma without Acute Exacerbation
- Stable. Continue ICS and PRN albuterol.
Depression
- Stable. Continue Effexor.
DVT Prophylaxis: Foot pumps
Code Status: DNR
[2024-04-02] VITALS (7 sets, daily range): BP systolic 102–168; BP diastolic 60–90; BMI 28.1
--- NOTE | 2024-04-02 01:30 | PTCARENOTE ---
Addendum entered by Marvin Lopez RN 04/02/24 03:09:
Patient admitted from ED. Patient AAO x3, on RA, in no acute distress. Patient has order for bedrest for right tib-fib fracture. Patient came up to floor with right leg in splint and juan diego wrap, chronic suprapubic catheter. Patient able to wiggles
toes on command and has +2 b/l pedal pulses, +sensation. Patient resting comfortably in bed, oriented to room and call forrester is within reach.
Original Note:
Patient admitted from ED. Patient AAO x3, on RA, in no acute distress. Patient has order for bedrest for right tib-fib fracture. Patient came up to floor with right leg in splint and juan diego wrap, chronic suprapubic catheter. Patient able to wiggles
toes on command and has +2 b/l pedal pulses. Patient resting comfortably in bed, oriented to room and call forrester is within reach.
[2024-04-02] MEDS: EFFEXOR XR 75 MG PO ×2 (01:38→16:31)
[2024-04-02] MEDS: LIORESAL PO (01:38)
[2024-04-02] MEDS: LIORESAL 40 MG PO ×4 (01:40→21:32)
[2024-04-02] MEDS: TYLENOL 1000 MG PO ×3 (02:49→16:31)
[2024-04-02 07:36] LABS: Hematocrit 32.4 % (39.0-52.0); Hemoglobin 10.3 g/dL (13.0-18.0); Mean Corp Hgb Conc. 31.8 g/dL (33.0-37.0); Mean Corpuscular Hgb 25.2 pg (27.0-31.0); Mean Corpuscular Volume 79.4 fL (80.0-94.0); Mean Platelet Volume 9.5 fL (7.4-10.4); Platelet Count 522 10^3/uL (130-400); Red Blood Cell Count 4.08 10^6/uL (4.70-6.10); White Blood Cell Count 11.9 10^3/uL (4.8-10.8)
[2024-04-02 08:06] LABS: Blood Urea Nitrogen 15 mg/dl (9-20); Calcium 9.2 mg/dl (8.4-10.2); Carbon Dioxide 28 mmol/L (22-30); Chloride 98 mmol/L (98-107); Estimated Creatinine Clearance 105 ml/min; Glucose 97 mg/dl (70-99); Potassium 4.5 mmol/L (3.5-5.1); Sodium 131 mmol/L (135-145); eGFR > 60.00
[2024-04-02] MEDS: EFFEXOR XR 150 MG PO (08:06)
[2024-04-02] MEDS: VITAMIN D3 (cholecalciferol) 50 MCG PO (08:06)
[2024-04-02] MEDS: COZAAR 25 MG PO (08:06)
[2024-04-02] MEDS: DESENEX/MITRAZOL/ZEASORB 1 APPLIC TOPICAL ×2 (11:17→21:32)
--- NOTE | 2024-04-02 12:21 | CM ---
CM updated Kristina from [facility] with admission.
--- NOTE | 2024-04-02 12:23 | W.PN.HOSP.TC ---
Today's Communication/Plan
-
Urology consult
Orthopedics consult
Bowel regimen
PT/OT
Assessment / Plan
Assessment / Plan
Gen-AAOx3, NAD
HEENT-NC, AT, anicteric, clear oral mm
Neck-supple
CV-reg, no M, +S1/S2
Lungs-clear B/L
Abd-soft, NT, ND
Ext-no edema, right lower extremity Charles bandage immobilizer
Musculoskeletal-no cyanosis, clubbing
Skin-warm and dry
Neuro-grossly non-focal
Psych-calm, cooperative
Subacute traumatic right tib-fib fracture - await Orthopedics consult. Apparently patient fell 2 weeks ago at home and has had mild pain and discomfort since. X-ray reviewed.
Asymptomatic bacteriuria -unclear if true urinary tract infection versus colonization. Currently on empiric ceftriaxone. Urine culture shows greater than 100,000 E. coli, sensitivity pending. Afebrile, mild leukocytosis noted, improving.
Chronic urinary retention/neurogenic bladder -due to MS. He is due for suprapubic catheter exchange, urology consulted.
Microcytic anemia -unknown acuity but hemoglobin was normal in January. Monitor hemoglobin for now, will need outpatient evaluation.
Chronic constipation -bowel regimen.
Multiple sclerosis -stable. At baseline he does not ambulate, does transfer from bed to chair and vice versa.
Essential hypertension -blood pressure somewhat elevated. On amlodipine, furosemide, losartan at home. Recheck blood pressure after meds.
Mild intermittent asthma -stable.
Depression
DNR
Anticipated Discharge: 24 - 48 hours
Subjective/Interval History
-
Date of Service: April 02, 2024
Patient seen and examined. Minimal right knee pain. No other complaints.
Objective Data
-
Labs:
Laboratory Results
04/02/24
07:14
WBC 11.9 H
Hgb 10.3 L
Hct 32.4 L
Plt Count 522 H
Sodium 131 L
Potassium 4.5
Chloride 98
Carbon Dioxide 28
BUN 15
Creatinine 0.5 L
Glucose 97
Calcium 9.2
Vital Signs:
Vital Signs
Temp Pulse Resp BP Pulse Ox
98.6 F 95 16 168/72 97
04/02/24 08:10 04/02/24 08:38 04/02/24 08:38 04/02/24 08:10 04/02/24 08:38
I&O
04/01/24 04/02/24 04/03/24
06:59 06:59 06:59
Intake Total 480 / 480
Output Total 900 / 900
Balance -420 / -420
Review of Systems
-
History Source: Patient
All other systems: Reviewed and negative
--- NOTE | 2024-04-02 12:29 | CM ---
Momo is known to [facility] and would like to be referred back for care at discharge if able to return home. He was recently at [facility], but if SNF needed he would prefer [facility]. Ortho and Urology consults pending.
Momo is interested in a w/c that has an elevating (R) leg rest to help alleviate pain, however he is not sure how he will navigate at home with this. He will discuss with PT for suggestions. Momo has previously ordered a wheelchair from the
internet; Medicare has not paid for a w/c, so Momo may wish to use his benefit for a new w/c.
Dr. Bryson in [place] is [facility] - [phone]
[facility] is preferred by Momo:
--- NOTE | 2024-04-02 16:22 | W.PN.UPDATE ---
Update Note
Progress Note Update
Pt seen and chart reviewed
With well aligned R proximal Tibia/Fibula fractures
Pt is without pain and is a nonambulator
For now would recommmend Nonoperative treatment
However, if the fracture shifts position in followup, then we may need to consider operative treatment
Please have F/U with me as outpt in about 7-10m days
thanks
GGMD
--- NOTE | 2024-04-02 17:25 | W.PN.URO.CBU ---
Today's Communication / Plan
-
have galvan cath kit to bedside
Assessment / Plan
-
please have kit for 16 fr galvan cath change to bedside fr sp tube change ain am this is a regular galvan kit no differnt than if placing i urethra
Diagnosis
-
Date of Service: April 02, 2024
-
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
Post Op Day:
Subjective
-
no gu complaints
Objective
-
Vital Signs
Temp Pulse Resp BP Pulse Ox
97.9 F 98 18 102/60 97
04/02/24 15:27 04/02/24 15:27 04/02/24 15:27 04/02/24 15:27 04/02/24 15:27
Intake and Output
04/01/24 04/02/24 04/03/24
06:59 06:59 06:59
Intake Total 480 / 480
Output Total 900 / 900
Balance -420 / -420
Intake:
Oral fluids 480 / 480
Output:
Suprapubic output 900 / 900
Laboratory Results
04/02/24 07:14
04/02/24 07:14
Review of Systems
-
: Difficulty Voiding
Physical Exam
-
General - well developed, well nourished, no acute distress
Chest - clear bilaterally
Abdomen - soft, non-tender, positive bowel sounds, no CVAT, no incisional pain or distentionsp tub clean and dry
Genitalia - normal
Rectal - normal
Skin - warm & dry with no rash
Neuro - AOx3, no motor deficits
Extremities - no clubbing, no cyanosis, no edema
Incision - clean, dry
Dressing - clean, dry, intact
Care Review
Data Reviewed
Discussed with: Hospitalist and Nursing
[2024-04-02] MEDS: CRESTOR 5 MG PO (21:32)
[2024-04-02] MEDS: NORVASC 2.5 MG PO (21:32)
[2024-04-02] MEDS: ROCEPHIN 1000 MG IV (21:32)
[2024-04-02] MEDS: STERILE WATER FOR INJECTION 10 ML IV (21:33)
[2024-04-03] MEDS: TYLENOL 1000 MG PO ×3 (03:49→23:12)
[2024-04-03 05:49] LABS: % Basophils 1.1 % (0-2); % Eosinophils 7.1 % (0-6); % Immature Granulocytes 1.2 % (0-0.5); % Lymphocytes 19.4 % (20.5-51.1); % Monocytes 9.9 % (1.7-9.3); % Neutrophils 61.3 % (42.2-75.2); Absolute Basophils 0.1 10^3/uL (0-0.2); Absolute Eosinophils 0.6 10^3/uL (0-0.7); Absolute Immature Granulocytes 0.1 10^3/uL (0-0.05); Absolute Lymphocytes 1.8 10^3/uL (1.2-3.4); Absolute Monocytes 0.9 10^3/uL (0.1-0.6); Absolute Neutrophils 5.5 10^3/uL (1.4-6.5); Hematocrit 30.2 % (39.0-52.0); Hemoglobin 9.5 g/dL (13.0-18.0); Mean Corp Hgb Conc. 31.5 g/dL (33.0-37.0); Mean Corpuscular Volume 79.5 fL (80.0-94.0); Mean Platelet Volume 9.3 fL (7.4-10.4); Nucleated Red Blood Cells % 0 % (-); Platelet Count 469 10^3/uL (130-400); Red Cell Dist. Width 14.8 % (11.5-14.5); White Blood Cell Count 9.1 10^3/uL (4.8-10.8)
[2024-04-03 06:07] LABS: Blood Urea Nitrogen 15 mg/dl (9-20); Carbon Dioxide 29 mmol/L (22-30); Chloride 101 mmol/L (98-107); Estimated Creatinine Clearance 105 ml/min; Glucose 108 mg/dl (70-99); Potassium 4.1 mmol/L (3.5-5.1); Sodium 134 mmol/L (135-145); eGFR > 60.00
[2024-04-03 07:10] VITALS: BP 139/78
[2024-04-03] MEDS: EFFEXOR XR 150 MG PO (09:25)
[2024-04-03] MEDS: COZAAR 25 MG PO (09:25)
[2024-04-03] MEDS: DESENEX/MITRAZOL/ZEASORB 1 APPLIC TOPICAL (09:26)
[2024-04-03] MEDS: LIORESAL 40 MG PO ×3 (09:26→21:12)
[2024-04-03] MEDS: VITAMIN D3 (cholecalciferol) 50 MCG PO (09:26)
--- NOTE | 2024-04-03 11:11 | W.PN.HOSP.TC ---
Today's Communication/Plan
-
Await urology input
Discharge planning
Assessment / Plan
Assessment / Plan
Gen-AAOx3, NAD
HEENT-NC, AT, anicteric, clear oral mm
Neck-supple
CV-reg, no M, +S1/S2
Lungs-clear B/L
Abd-soft, NT, ND
Ext-no edema, right lower extremity Charles bandage immobilizer
Musculoskeletal-no cyanosis, clubbing
Skin-warm and dry
Neuro-grossly non-focal
Psych-calm, cooperative
Subacute traumatic right tib-fib fracture - await Orthopedics consult. Apparently patient fell 2 weeks ago at home and has had mild pain and discomfort since. X-ray reviewed. Orthopedics recommends nonoperative management for now, outpatient
follow-up in 7 to 10 days. Nonweightbearing to right lower extremity.
E. coli UTI due to suprapubic catheter -leukocytosis resolved. Afebrile. Pansensitive on culture. Currently on IV Rocephin.
Chronic urinary retention/neurogenic bladder -due to MS. He is due for suprapubic catheter exchange, urology consulted. Catheter to be exchanged today.
Microcytic anemia -unknown acuity but hemoglobin was normal in January. Monitor hemoglobin for now, will need outpatient evaluation.
Chronic constipation -bowel regimen.
Multiple sclerosis -stable. At baseline he does not ambulate, does transfer from bed to chair and vice versa.
Essential hypertension -stable. On amlodipine, furosemide, losartan at home.
Mild intermittent asthma -stable.
Depression
DNR
Dispo -anticipate discharge to SNF. Updated on the phone and she cannot handle him at home. Updated case management. Anticipate discharge when bed available.
Anticipated Discharge: 24 - 48 hours
Subjective/Interval History
-
Date of Service: April 03, 2024
Patient seen and examined. Pain is under control at rest. No other complaints.
Objective Data
-
Labs:
Laboratory Results
04/03/24
05:09
WBC 9.1
Hgb 9.5 L
Hct 30.2 L
Plt Count 469 H
Sodium 134 L
Potassium 4.1
Chloride 101
Carbon Dioxide 29
BUN 15
Creatinine 0.6 L
Glucose 108 H
Calcium 9.0
Vital Signs:
Vital Signs
Temp Pulse Resp BP Pulse Ox
98.1 F 75 14 139/78 96
04/03/24 07:10 04/03/24 09:25 04/03/24 08:14 04/03/24 09:25 04/03/24 08:14
I&O
04/02/24 04/03/24 04/04/24
06:59 06:59 06:59
Intake Total 480 / 480 600 / 600
Output Total 900 / 900 2550 / 2550
Balance -420 / -420 -1950 / -1950
Review of Systems
-
History Source: Patient
All other systems: Reviewed and negative
--- NOTE | 2024-04-03 13:25 | W.PN.URO.CBU ---
Today's Communication / Plan
-
no new chnges
Assessment / Plan
-
Chnged so tube upsized to 18 fr 10 cc balloon at bedside
Diagnosis
-
Date of Service: April 03, 2024
-
Patient Diagnosis:
Post Op Day:
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
Post Op Day:
Subjective
-
no new problems
Objective
-
Vital Signs
Temp Pulse Resp BP Pulse Ox
98.1 F 75 14 139/78 96
04/03/24 07:10 04/03/24 09:25 04/03/24 08:14 04/03/24 09:25 04/03/24 12:11
Intake and Output
04/02/24 04/03/24 04/04/24
06:59 06:59 06:59
Intake Total 480 / 480 600 / 600
Output Total 900 / 900 2550 / 2550
Balance -420 / -420 -1950 / -1950
Intake:
Oral fluids 480 / 480 600 / 600
Output:
Urine, Salmeron 1400 / 1400
Suprapubic output 900 / 900 1150 / 1150
Laboratory Results
04/03/24 05:09
04/03/24 05:09
Review of Systems
-
: Difficulty Voiding
Physical Exam
-
General - well developed, well nourished, no acute distress
Chest - clear bilaterally
Abdomen - soft, non-tender, positive bowel sounds, no CVAT, no incisional pain or distention
Genitalia - normal
Rectal - normal
Skin - warm & dry with no rash
Neuro - AOx3, no motor deficits
Extremities - no clubbing, no cyanosis, no edema
Incision - clean, dry
Dressing - clean, dry, intact
Counseling
-
changed sp tube
Care Review
Data Reviewed
Discussed with: Nursing
[2024-04-03 15:17] VITALS: BP 136/60; PULSE 98; O2SAT 94
[2024-04-03 15:18] VITALS: BP 136/60
[2024-04-03] MEDS: EFFEXOR XR 75 MG PO (17:08)
[2024-04-03 21:07] VITALS: BP 133/71
[2024-04-03] MEDS: NORVASC 2.5 MG PO (21:12)
[2024-04-03] MEDS: CRESTOR 5 MG PO (21:12)
[2024-04-03] MEDS: ROCEPHIN 1000 MG IV (21:13)
[2024-04-03] MEDS: STERILE WATER FOR INJECTION 10 ML IV (21:13)
[2024-04-03] MEDS: DESENEX/MITRAZOL/ZEASORB TOPICAL (21:14)
[2024-04-03 23:36] VITALS: BP 136/79
[2024-04-04 07:05] VITALS: BP 152/77
[2024-04-04] MEDS: EFFEXOR XR 150 MG PO (09:09)
[2024-04-04] MEDS: VITAMIN D3 (cholecalciferol) 50 MCG PO (09:09)
[2024-04-04] MEDS: COZAAR 25 MG PO (09:09)
[2024-04-04] MEDS: LIORESAL 40 MG PO ×3 (09:09→22:25)
[2024-04-04] MEDS: DESENEX/MITRAZOL/ZEASORB 1 APPLIC TOPICAL ×2 (09:10→22:24)
--- NOTE | 2024-04-04 09:58 | W.PN.URO.CBU ---
Today's Communication / Plan
-
per hospitalst
Assessment / Plan
-
Chnged so tube upsized to 18 fr 10 cc balloon at bedside draining well
Diagnosis
-
Date of Service: April 04, 2024
-
Patient Diagnosis:
Post Op Day:
Patient Diagnosis:
Post Op Day:
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
Post Op Day:
Subjective
-
sp tube no complaints
Objective
-
Vital Signs
Temp Pulse Resp BP Pulse Ox
98.3 F 98 16 152/77 97
04/04/24 07:05 04/04/24 09:09 04/04/24 08:11 04/04/24 09:09 04/04/24 08:11
Intake and Output
04/03/24 04/04/24 04/05/24
06:59 06:59 06:59
Intake Total 600 / 600 1680 / 1680
Output Total 2550 / 2550 950 / 950
Balance -1950 / -1950 730 / 730
Intake:
Oral fluids 600 / 600 1680 / 1680
Output:
Urine, Salmeron 1400 / 1400
Suprapubic output 1150 / 1150 950 / 950
Laboratory Results
04/03/24 05:09
04/03/24 05:09
Review of Systems
-
: Difficulty Voiding
Physical Exam
-
General - well developed, well nourished, no acute distress
Chest - clear bilaterally
Abdomen - soft, non-tender, positive bowel sounds, no CVAT, no incisional pain or distention
Genitalia - normal
Rectal - normal
Skin - warm & dry with no rash
Neuro - AOx3, no motor deficits
Extremities - no clubbing, no cyanosis, no edema
Incision - clean, dry
Dressing - clean, dry, intact
Care Review
Data Reviewed
Discussed with: Hospitalist
--- NOTE | 2024-04-04 12:10 | CM ---
Patient with Hx Multiple sclerosis with Dx Subacute traumatic right tib-fib fracture, UTI due to suprapubic catheter. NWB RLE. PT & OT recommend skilled rehab.
Met with patient yesterday and again today x2, and spoke with today by phone x2. Discussed short term rehab at SNF - patient/ agreed to 4 SNF preferences: first choice [facility], 2nd choice [facility], 3rd choice [facility], 4th
choice [facility]. Patient seems to be obsessing and worried about why he needs to go to rehab despite extensive explanations, concerned about the goals of rehab and whether he will improve. Repeated explanations provided. Nurse also reporting
patient upset at intervals about having to go to rehab. feels she cannot care for patient at home at this time, having had a heart attack about a month ago, and does not want patient to d/c to home at this time as she would need to pay
privately for a caregiver, and she expressed concern about patient's fall risk. She will be coming in today with their son.
SNF referrals placed.
Message from Alc[facility] Varg[facility]; no bed available this weekend.
Spoke with Lolita Almanza [facility]; she cannot offer a bed as they are full with no openings anticipated.
Plan follow up SNF referrals.
--- NOTE | 2024-04-04 12:13 | W.PN.HOSP.TC ---
Addendum entered and electronically signed by Manpreet Schulz DO 04/04/24 14:14:
I left a voicemail for patient's to call me back.
Original Note:
Today's Communication/Plan
-
Discharge planning
Assessment / Plan
Assessment / Plan
Gen-AAOx3, NAD
HEENT-NC, AT, anicteric, clear oral mm
Neck-supple
CV-reg, no M, +S1/S2
Lungs-clear B/L
Abd-soft, NT, ND
Ext-no edema, right lower extremity Charles bandage immobilizer
Musculoskeletal-no cyanosis, clubbing
Skin-warm and dry
Neuro-grossly non-focal
Psych-calm, cooperative
Subacute traumatic right tib-fib fracture - await Orthopedics consult. Apparently patient fell 2 weeks ago at home and has had mild pain and discomfort since. X-ray reviewed. Orthopedics recommends nonoperative management for now, outpatient
follow-up in 7 to 10 days. Nonweightbearing to right lower extremity.
By definition he has osteoporosis. Discussed with patient, will need outpatient treatment.
E. coli UTI due to suprapubic catheter -leukocytosis resolved. Afebrile. Pansensitive on culture. Change to oral antibiotics today.
Chronic urinary retention/neurogenic bladder -due to MS. SPT tube changed by urology.
Microcytic anemia -unknown acuity but hemoglobin was normal in January. Monitor hemoglobin for now, will need outpatient evaluation.
Chronic constipation -bowel regimen.
Multiple sclerosis -stable. At baseline he does not ambulate, does transfer from bed to chair and vice versa.
Essential hypertension -stable. On amlodipine, furosemide, losartan at home.
Mild intermittent asthma -stable.
Depression
DNR
Dispo -anticipate discharge to SNF. Updated on the phone and she cannot handle him at home. Updated case management. Anticipate discharge when bed available.
Anticipated Discharge: Within 24 hours
Subjective/Interval History
-
Date of Service: April 04, 2024
Patient seen/examined, complaining of muscle spasms in legs.
Objective Data
-
Vital Signs:
Vital Signs
Temp Pulse Resp BP Pulse Ox
98.3 F 98 16 152/77 97
04/04/24 07:05 04/04/24 09:09 04/04/24 08:11 04/04/24 09:09 04/04/24 08:11
I&O
04/03/24 04/04/24 04/05/24
06:59 06:59 06:59
Intake Total 600 / 600 1680 / 1680
Output Total 2550 / 2550 950 / 950
Balance -1950 / -1950 730 / 730
Review of Systems
-
History Source: Patient
All other systems: Reviewed and negative
[2024-04-04] MEDS: TYLENOL 1000 MG PO ×2 (13:45→22:30)
[2024-04-04 15:20] VITALS: BP 132/60
[2024-04-04] MEDS: EFFEXOR XR 75 MG PO (17:09)
[2024-04-04] MEDS: CRESTOR 5 MG PO (22:25)
[2024-04-04] MEDS: OMNICEF 300 MG PO (22:25)
[2024-04-04] MEDS: NORVASC 2.5 MG PO (22:37)
[2024-04-04 23:15] VITALS: BP 145/69
[2024-04-05 08:21] VITALS: BP 150/78
[2024-04-05] MEDS: TYLENOL 1000 MG PO (08:33)
[2024-04-05] MEDS: OMNICEF 300 MG PO (08:34)
[2024-04-05] MEDS: COZAAR 25 MG PO (08:34)
[2024-04-05] MEDS: LIORESAL 40 MG PO (08:35)
[2024-04-05] MEDS: EFFEXOR XR 150 MG PO (08:35)
[2024-04-05] MEDS: VITAMIN D3 (cholecalciferol) 50 MCG PO (08:35)
[2024-04-05] MEDS: DESENEX/MITRAZOL/ZEASORB 1 APPLIC TOPICAL (08:36)
--- NOTE | 2024-04-05 09:46 | CM ---
CM called and VM left for [facility] pending bed availability, VM left for [facility] and CM spoke with [facility] awaiting update.
--- NOTE | 2024-04-05 10:05 | CM ---
Addendum entered by Kala Garza 04/05/24 10:33:
Patient accepted bed at [facility], patient completed IMM and signed form placed on chart. Patient for ambulance transfer. Please call report to [phone]/fax [phone]
Original Note:
CM called to patient and update provided re available beds, [facility] accepted patient and patient physician indicated that he is ready for discharge. Patient indicated that she wanted to talk to patient and physician to discuss options as
well. CM called to [facility] x2 and no response, [facility] looking at options. CM will continue to follow for discharge planning needs.
Plan; SNF today; [facility] pending acceptance
--- NOTE | 2024-04-05 10:17 | W.PN.HOSP.TC ---
Today's Communication/Plan
-
dc to SNF today
Assessment / Plan
Assessment / Plan
Assessment:
Subacute traumatic right tib-fib fracture
- Apparently patient fell 2 weeks ago at home and has had mild pain and discomfort since. X-ray reviewed. Orthopedics recommends nonoperative management for now, outpatient follow-up in 7 to 10 days. Nonweightbearing to right lower extremity.
- by definition he has osteoporosis. Discussed with patient, will need outpatient treatment.
E. coli UTI due to suprapubic catheter - leukocytosis resolved. Afebrile. Pansensitive on culture. Change to oral antibiotics today.
Chronic urinary retention/neurogenic bladder -due to MS. SPT tube changed by urology.
Microcytic anemia -unknown acuity but hemoglobin was normal in January. Monitor hemoglobin for now, will need outpatient evaluation.
Chronic constipation -bowel regimen.
Multiple sclerosis -stable. At baseline he does not ambulate, does transfer from bed to chair and vice versa.
Essential hypertension -stable. On amlodipine, furosemide, losartan at home.
Mild intermittent asthma -stable.
Depression
DNR
Dispo- DC to SNF today.
More than 30 minutes spent in discharge including
Final examination of the patient
Summarizing hospital stay
Instructions for continuing care to all relevant caregivers
Preparation of discharge records, prescriptions, and referral forms
Total time spent (in minutes): 41
Anticipated Discharge: Today
Subjective/Interval History
-
Date of Service: April 05, 2024
reports some RLE muscle spasms
Objective Data
-
Vital Signs:
Vital Signs
Temp Pulse Resp BP Pulse Ox
98.4 F 86 18 150/78 94
04/05/24 08:21 04/05/24 08:21 04/05/24 08:21 04/05/24 08:21 04/05/24 08:21
I&O
04/04/24 04/05/24 04/06/24
06:59 06:59 06:59
Intake Total 1680 / 1680 2160 / 2160
Output Total 950 / 950 2525 / 2525
Balance 730 / 730 -365 / -365
Physical Exam
-
General: No Apparent Distress
HEENT: Normocephalic and Atraumatic
Respiratory: Negative Wheezes
Cardiac: Regular Rhythm
GI: Soft
Genito-urinary: No Costovertebral Tender
Musculoskeletal: Other (RLE dressing)
Neuro: AO x 3
Hematologic / Lymphatic: No Lymphadenopathy
Psych: Calm
Data Reviewed
-
Total Time Spent with Patient (in minutes): 41
Labs: Labs Reviewed by me
--- NOTE | 2024-04-05 10:21 | W.DS.TRANS ---
DC Summary - [facility]
-
Discharge Instructions:
Discharge Diagnosis/Procedures Right proximal tibial and fibular fractures, E.
Coli UTI
Diet Regular
Activity Other activity
Additional Activity No weightbearing on right lower extremity
Driving Restrictions No driving
Bathing Restrictions None
Other Services VN,PT
Instructions:
Stand-Alone Forms:
Changes to Home Medications: No
Discharge Medications:
DC Medications w/original date entered in [employer]
cholecalciferol (vitamin D3) 25 mcg (1,000 unit) capsule (Vitamin D3) 2,000 unit PO DAILY Supplement 03/11/22
dalfampridine 10 mg tablet,extended release,12 hr (Ampyra) 10 mg PO BID Neurological Condition/MS 03/11/22
furosemide 40 mg tablet (Lasix) 40 mg PO BID@0800,1700 Fluid Retention/Swelling 03/11/22
rosuvastatin 5 mg tablet 5 mg PO HS High Cholesterol 03/11/22
venlafaxine 150 mg capsule,extended release 24 hr (Effexor XR) 150 mg PO DAILY Mental Health/Anxiety 03/11/22
venlafaxine 75 mg capsule,extended release 24 hr (Effexor XR) 75 mg PO QPM Mental Health/Anxiety 03/11/22
fluticasone propionate 50 mcg/actuation nasal spray,suspension 2 spray intranasal HS Allergies 04/23/23
acetaminophen 500 mg tablet (Tylenol Extra Strength) 1,000 mg PO Q6HPRN PRN fever 01/02/24
amlodipine 2.5 mg tablet (Norvasc) 2.5 mg PO HS Blood Pressure 01/02/24
fluticasone propionate 110 mcg/actuation HFA aerosol inhaler 2 puff inhalation R BID Lung/Breathing Issues 01/02/24
losartan 25 mg tablet 25 mg PO DAILY Blood Pressure 01/02/24
therapeutic multivitamin 1 tab PO DAILY Supplement 01/02/24
zinc sulfate 50 mg zinc (220 mg) tablet 50 mg PO DAILY Supplement 01/02/24
baclofen 20 mg tablet 40 mg (2 x 20 mg) PO TID Pain #100 tabs 04/05/24
cefdinir 300 mg capsule 300 mg PO Q12 #10 caps 04/05/24
Home Medication Changes
Pending Results: No
Total time spent discharging patient (in min): 41
[2024-04-05 11:24] VITALS: BP 142/65
== END 2024-04-05 12:49 | DRG 543 ==
LOC: 4 EAST ACU 23:48
PROVIDERS: Hospitalist; Physician Assistant Medical; ADMITTING PHYSICIAN Hospitalist; ATTENDING PHYSICIAN Internal Medicine; CONSULT PHYSICIAN Orthopaedic Surgery Hand Surgery; CONSULT PHYSICIAN Specialist; EMERGENCY PHYSICIAN Emergency Medicine; FAMILY PHYSICIAN Family Medicine
DX: M80.061A Age-related osteoporosis with current pathological fracture, right lower leg, initial encounter for fracture (principal); L12.0 Bullous pemphigoid; T83.510A Infection and inflammatory reaction due to cystostomy catheter, initial encounter; N39.0 Urinary tract infection, site not specified; G35 Multiple sclerosis; Y84.6 Urinary catheterization as the cause of abnormal reaction of the patient, or of later complication, without mention of misadventure at the time of the procedure; K59.09 Other constipation; E78.00 Pure hypercholesterolemia, unspecified; I10 Essential (primary) hypertension; F32.A Depression, unspecified; J45.20 Mild intermittent asthma, uncomplicated; D50.9 Iron deficiency anemia, unspecified; N31.9 Neuromuscular dysfunction of bladder, unspecified; W18.11XA Fall from or off toilet without subsequent striking against object, initial encounter; R60.9 Edema, unspecified; Z66 Do not resuscitate; Z99.3 Dependence on wheelchair; Z87.440 Personal history of urinary (tract) infections; Z91.81 History of falling; Y93.89 Activity, other specified; Y92.002 Bathroom of unspecified non-institutional (private) residence as the place of occurrence of the external cause; Z79.51 Long term (current) use of inhaled steroids; Z88.2 Allergy status to sulfonamides; Z74.01 Bed confinement status
CPT/HCPCS: 29505; 73564; 80048; 81003; 81015; 83605; 85025; 85027; 87040; 87070; 87086; 87088; 87186; 94640; 96374; 97163; 97167; 97530; 99285

== ENCOUNTER 2024-04-06 02:29 | Emergency (ER) | payer MEDICARE, SELFPAY ==
[2024-04-06] VITALS (10 sets, daily range): BP systolic 124–174; BP diastolic 77–113; BMI 30.5
--- NOTE | 2024-04-06 03:40 | EDRN ---
Pt says he was in the hospital for few days with fx R tib-fib. Pt went to [facility] for rehab Friday morning. Pt has MS and says the goal is to get him to be able to transfer himself into a wheelchair. Pt notes increased pain in RLE. Pt feels
more spasms in the R upper leg and does not feel his pain is improving. Pt reports he was given tylenol for pain before he was sent to the ED and does not think it helped. Pt denies cp, sob, abd pain, n/v, fever/chills/cough. RLE is propped on
two pillows, splint intact. Toes pink, good refill and sensation.
--- NOTE | 2024-04-06 05:02 | ED.GENMED ---
History of Present Illness
<ALE Cooper - Last Filed: 04/06/24 06:32>
General
Chief Complaint: Generalized Pain
Source: patient
Exam Limitations: none
Time Seen by Provider: 04/06/24 04:21
Nursing documentation reviewed up to this point in time: agreed with
Travel History
Have you had any contact with someone who has COVID-19?: No
Do you have any symptoms of coronavirus? Fever > 100 degrees, chills, cough, shortness of breath, sore throat, loss of taste or smell, muscle aches, or headache?: No
History of Present Illness
History of Present Illness:
This is a 73 year old male with recent history of tib/fib fracture (posterior leg splint), MS, chronic UTIs (suprapubic catheter) who presents to the ED with complaint of worsening pain and spasms with R lower extremity x1 day. He was discharged
yesterday from [facility] with diagnosis of R proximal tibial and fibular fractures with nonoperative management and E. Coli UTI on PO Cefdinir. Patient's R lower extremity is currently splinted. He states he gets spasms of his LE that have been
getting worse since discharge. He was discharged to [facility] for PT and given Tylenol for pain. He denies chest pain, shortness of breath, headache, or fever.
Past History
<ALE Cooper - Last Filed: 04/06/24 06:32>
Past History
ED Past Medical History: Asthma, HTN, Hypercholesterolemia and Other (MS, wheelchair bound)
ED Past Surgical History: Appendectomy, Tonsilectomy and Urological (Suprapubic 3-4 years ago)
Social History
Tobacco: Non-smoker
Alcohol: Occasional
Drug: None
Personal:
Living: with family
Review of Systems
<ALE Cooper - Last Filed: 04/06/24 06:32>
Review of Systems
Allergies reviewed?: Yes
All Other Systems: Not applicable
Constitutional: Reports no symptoms
EENT: Reports no symptoms
Respiratory: Reports no symptoms
Cardiac: Reports no symptoms
ABD/GI: Reports no symptoms
: Reports no symptoms
Musculoskeletal: Reports other (R lower extremity pain and spasms)
Skin: Reports no symptoms
Neurological: Reports no symptoms
Endocrine: Reports no symptoms
Hematologic/Lymphatic: Reports no symptoms
Psychiatric: Reports no symptoms
Phy Exam
<ALE Cooper - Last Filed: 04/06/24 06:32>
General Physical Exam
General Presentation: well appearing and no apparent distress
General Skin: warm and dry
General Habitus: normal
General Mental: alert
General Hydration: appears well hydrated
ENT Exam
ENT Exam: EOMI, pharynx normal, neck supple and normocephalic
Eye Exam
Eye Exam: PERRL, cornea clear and conjunctiva normal
Cardiovascular Exam
Cardiovascular Exam: regular rate/rhythm, no edema, no murmur and normal peripheral pulses
Pulmonary Exam
Pulmonary Exam: lungs clear, no respiratory distress, no rales, no crackles, no rhonchi, no stridor, no wheezing and no cough
Gastrointestinal Exam
Gastrointestinal Exam: normal bowel sounds, non tender, soft, no organomegaly, no pulsatile mass and non distended
Neurological Exam
Neurological Exam: alert, oriented x3, no motor deficits and other (Answers questions slowly but appropriately )
Musculoskeletal Exam
Musculoskeletal Exam: full ROM, no edema and other (Long-leg posterior splint on RLE)
Skin Exam
Skin Exam: normal color, warm/dry, no rash and no petechia
Psychiatric Exam
Psychiatric Exam: normal mood/affect
Course
<ALE Cooper - Last Filed: 04/06/24 06:32>
Vital Signs
Initial and Last Documented VS:
Initial Vital Signs
Temp Pulse Resp BP Pulse Ox
98.0 F 74 18 147/77 95
04/06/24 02:34 04/06/24 02:34 04/06/24 02:34 04/06/24 02:34 04/06/24 02:34
Last Documented Vital Signs
Temp Pulse Resp BP Pulse Ox
98.0 F 85 17 124/91 95
04/06/24 02:34 04/06/24 06:00 04/06/24 06:00 04/06/24 06:00 04/06/24 06:00
<Paul Robin DO - Last Filed: 04/06/24 07:19>
Vital Signs
Initial and Last Documented VS:
Initial Vital Signs
Temp Pulse Resp BP Pulse Ox
98.0 F 74 18 147/77 95
04/06/24 02:34 04/06/24 02:34 04/06/24 02:34 04/06/24 02:34 04/06/24 02:34
Last Documented Vital Signs
Temp Pulse Resp BP Pulse Ox
98.0 F 85 17 124/91 95
04/06/24 02:34 04/06/24 06:00 04/06/24 06:00 04/06/24 06:00 04/06/24 06:00
<ALE Cooper - Last Filed: 04/06/24 06:32>
MDM/Problems Addressed
Differential Diagnosis Includes:
Pain secondary to tib/fib fracture vs improper splint placement, MS exacerbation, compartment syndrome
MS exacerbation considered due to patient's history of MS, however less likely to due recent fracture injury. Compartment syndrome on differentials but normal dorsalis pedis pulse, no poikilothermia, paresthesias. Pain secondary to improper splint
placement considered but examination of splint reveals proper placement with no finger indentations. I suspect patient is has spasms due to his MS and pain is secondary to his recent tib/fib fracture.
<ALE Cooper - Last Filed: 04/06/24 06:32>
*Critical Care Note
Total Time (30-74mins, 75-104mins- exclusive of procedures): Not Applicable
<Paul Robin DO - Last Filed: 04/06/24 07:19>
*Pulse Oximetry
Patient hypoxic: no
*EKG
Interpreted by ED Provider?: NA
*Labeling Associate Interpretation
Rate: Labeling Associate- N/A
Data Reviewed
Review of Other/Old Records Reveals: Progress Notes (Nonoperative treatment elected, due to patient being nonambulatory)
<Paul Robin DO - Last Filed: 04/06/24 07:19>
Patient Management
Social determinants of health affecting care: Living situation
Escalation/DeEscalation of care consider admission/obs:
Admit not indicated
ED Attending Note
<ALE Cooper - Last Filed: 04/06/24 06:32>
-
Portions of this chart may have been created with voice recognition software.� Occasional wrong word or��sound alike� substitutions may have occurred due to the inherent limitations of voice recognition software.
<Paul Robin DO - Last Filed: 04/06/24 07:19>
ED Attending Note
Patient seen and examined by attending physician: Yes
I performed a history and physical exam of patient and discussed management with resident, I reviewed resident's note and agree with documented findings and plan of care.: Yes
ED Attending Note:
I have reviewed and agree with history and treatment plan. My exam revealed 73-year-old male with long-leg splint in place right lower leg, soft compartments. Patient's pain controlled at this time. Short course of Valium prescribed for patient's
spasms. Stable for discharge.
Discharge Plan
Departure
Patient Disposition: Fpc/SNF
Date of Disposition: 04/06/24
Time of Disposition: 06:43
Patient with high blood pressure during this ER visit?: Yes
Condition: Fair
Discharge Problem:
Closed fracture of proximal end of right tibia, Closed fracture of proximal end of right fibula
Instructions: Lower leg fracture, Chronic Pain (DC)
Prescriptions:
New
diazepam [Valium] 2 mg tablet
2 mg PO TID PRN (Reason: muscle spasm) Qty: 7 0RF
No Action
furosemide [Lasix] 40 MG tablet
40 mg PO BID@0800,1700
venlafaxine [Effexor XR] 75 MG capsule,extended release 24hr
75 mg PO QPM
venlafaxine [Effexor XR] 150 MG capsule,extended release 24hr
150 mg PO DAILY
cholecalciferol (vitamin D3) [Vitamin D3] 1,000 UNIT capsule
2,000 unit PO DAILY
rosuvastatin 5 MG tablet
5 mg PO HS
dalfampridine [Ampyra] 10 MG tablet extended release 12 hr
10 mg PO BID
fluticasone propionate 50 mcg/actuation [place],Suspension
2 spray INTRANASAL HS
therapeutic multivitamin Tablet
1 tab PO DAILY
amlodipine [Norvasc] 2.5 mg Tablet
2.5 mg PO HS
zinc sulfate 50 mg zinc (220 mg) Tablet
50 mg PO DAILY
losartan 25 mg Tablet
25 mg PO DAILY
fluticasone propionate 110 mcg/actuation Hfa Aerosol Inhaler
2 puff INHALATION R BID
acetaminophen [Tylenol Extra Strength] 500 mg Tablet
1,000 mg PO Q6HPRN PRN (Reason: fever)
cefdinir 300 mg Capsule
300 mg PO Q12 Qty: 10 0RF
baclofen 20 MG tablet
40 mg PO TID Qty: 100 0RF
Rx Instructions:
8 AM, 1PM, 6 PM
Referrals:
Regulo Bryson, [Family Provider] -
Interventions
Interventions:
*Risk Screen - Suicide Last Done: 04/06/24 02:34
*General Assessment Last Done: 04/06/24 02:34
*Neglect/Abuse Screening Last Done: 04/06/24 02:34
ED- Fall Risk Assessment Last Done: 04/06/24 03:39
*ED COVID-19 Vaccine History Last Done: 04/06/24 02:34
Discharge Date and Time
Print Language: SLOVAK
== END 2024-04-06 11:11 ==
LOC: EMR 02:29
PROVIDERS: EMERGENCY PHYSICIAN Emergency Medicine; FAMILY PHYSICIAN Family Medicine
DX: S82.831A Other fracture of upper and lower end of right fibula, initial encounter for closed fracture (principal); X58.XXXA Exposure to other specified factors, initial encounter; R10.84 Generalized abdominal pain; J45.909 Unspecified asthma, uncomplicated; I10 Essential (primary) hypertension; E78.00 Pure hypercholesterolemia, unspecified; G35 Multiple sclerosis; Z99.3 Dependence on wheelchair; Z87.440 Personal history of urinary (tract) infections; Z90.49 Acquired absence of other specified parts of digestive tract
CPT/HCPCS: 99282

== ENCOUNTER → 2024-05-03 10:21 | Outpatient (REF) | payer OTHER, MEDICARE, SELFPAY ==
[2024-05-03 11:19] LABS: % Basophils 1.6 % (0-2); % Eosinophils 10.6 % (0-6); % Immature Granulocytes 0.5 % (0-0.5); % Lymphocytes 29.4 % (20.5-51.1); % Monocytes 9.8 % (1.7-9.3); % Neutrophils 48.1 % (42.2-75.2); Absolute Basophils 0.1 10^3/uL (0-0.2); Absolute Eosinophils 0.7 10^3/uL (0-0.7); Absolute Lymphocytes 1.8 10^3/uL (1.2-3.4); Absolute Monocytes 0.6 10^3/uL (0.1-0.6); Hematocrit 33.2 % (39.0-52.0); Hemoglobin 10.2 g/dL (13.0-18.0); Mean Corp Hgb Conc. 30.7 g/dL (33.0-37.0); Mean Corpuscular Hgb 24.2 pg (27.0-31.0); Mean Corpuscular Volume 78.9 fL (80.0-94.0); Mean Platelet Volume 10.5 fL (7.4-10.4); Nucleated Red Blood Cells % 0 % (-); Platelet Count 337 10^3/uL (130-400); Red Blood Cell Count 4.21 10^6/uL (4.70-6.10); Red Cell Dist. Width 15.5 % (11.5-14.5); White Blood Cell Count 6.2 10^3/uL (4.8-10.8)
[2024-05-03 11:32] LABS: Blood Urea Nitrogen 16 mg/dl (9-20); Calcium 8.6 mg/dl (8.4-10.2); Carbon Dioxide 31 mmol/L (22-30); Chloride 102 mmol/L (98-107); Glucose 90 mg/dl (70-99); Potassium 3.6 mmol/L (3.5-5.1); Sodium 141 mmol/L (135-145); eGFR > 60.00
== END ==
LOC: OLABP 10:21
PROVIDERS: ATTENDING PHYSICIAN Family Medicine
DX: D64.9 Anemia, unspecified (principal); I10 Essential (primary) hypertension; N31.9 Neuromuscular dysfunction of bladder, unspecified; R26.2 Difficulty in walking, not elsewhere classified
CPT/HCPCS: 36415; 80048; 85025

== ENCOUNTER 2024-05-27 17:28 | Emergency (ER) | payer MEDICARE, SELFPAY ==
[2024-05-27 17:39] VITALS: BP 152/81; BMI 29.9
[2024-05-27 17:42] VITALS: BP 152/81
[2024-05-27 17:54] LABS: % Basophils 0.8 % (0-2); % Eosinophils 2.4 % (0-6); % Immature Granulocytes 0.4 % (0-0.5); % Lymphocytes 9.8 % (20.5-51.1); % Monocytes 9.8 % (1.7-9.3); % Neutrophils 76.8 % (42.2-75.2); Absolute Basophils 0.1 10^3/uL (0-0.2); Absolute Eosinophils 0.4 10^3/uL (0-0.7); Absolute Immature Granulocytes 0.1 10^3/uL (0-0.05); Absolute Lymphocytes 1.4 10^3/uL (1.2-3.4); Absolute Monocytes 1.4 10^3/uL (0.1-0.6); Absolute Neutrophils 11.1 10^3/uL (1.4-6.5); Hematocrit 36.4 % (39.0-52.0); Hemoglobin 11.3 g/dL (13.0-18.0); Mean Corpuscular Hgb 22.5 pg (27.0-31.0); Mean Corpuscular Volume 72.4 fL (80.0-94.0); Mean Platelet Volume 10.1 fL (7.4-10.4); Nucleated Red Blood Cells % 0 % (-); Platelet Count 369 10^3/uL (130-400); Red Blood Cell Count 5.03 10^6/uL (4.70-6.10); Red Cell Dist. Width 16.2 % (11.5-14.5); White Blood Cell Count 14.5 10^3/uL (4.8-10.8)
[2024-05-27 18:00] VITALS: BP 136/88
[2024-05-27 18:07] LABS: Lactic Acid 1.8 mmol/L (0.7-2.0)
[2024-05-27 18:09] LABS: ALT (SGPT) 21 U/L (0-50); AST (SGOT) 30 U/L (17-59); Albumin 4.1 g/dl (3.5-5.0); Alkaline Phosphatase 159 U/L (38-126); Blood Urea Nitrogen 15 mg/dl (9-20); Calcium 9.1 mg/dl (8.4-10.2); Carbon Dioxide 26 mmol/L (22-30); Chloride 98 mmol/L (98-107); Estimated Creatinine Clearance 117 ml/min; Glucose 114 mg/dl (70-99); Sodium 134 mmol/L (135-145); Total Bilirubin 0.5 mg/dl (0.2-1.3); Total Protein 6.7 g/dl (6.3-8.2); eGFR > 60.00
[2024-05-27 19:00] VITALS: BP 156/69
[2024-05-27] MEDS: NSS 500 IV (20:01)
[2024-05-27] MEDS: TYLENOL 1000 MG PO (20:57)
[2024-05-27] MEDS: ROCEPHIN 2000 MG IV (20:57)
[2024-05-27 21:00] LABS: Urine Albumin 2+ (Neg - Trace); Urine Bilirubin Negative (Negative); Urine Character Very Cloudy (Clear); Urine Color Red; Urine Glucose Negative (Negative); Urine Ketone Negative (Negative); Urine Leukocyte 2+ (Negative); Urine Nitrite Negative (Negative); Urine Occult Blood 4+ (Negative); Urine Specific Gravity 1.005 (<1.030); Urine Urobilinogen Negative (Neg - 1+)
[2024-05-27 21:15] LABS: Urine Red Blood Cell >100 /HPF (0-2)
--- NOTE | 2024-05-27 22:50 | ED.GENMED ---
History of Present Illness
General
Chief Complaint: Male Genito-Urinary Symptoms
Source: patient
Exam Limitations: none
Time Seen by Provider: 05/27/24 18:49
Nursing documentation reviewed up to this point in time: agreed with
History of Present Illness
History of Present Illness:
73-year-old male with past medical history of hypertension hyperlipidemia, multiple sclerosis, seizure disorder, chronic suprapubic catheter presenting to the emergency department today with concerns of difficulty draining from his suprapubic
catheter as well as discomfort to the area surrounding the suprapubic catheter. He claims this feels similar to previous episodes when he had a UTI.
Past History
Past History
ED Past Medical History: Asthma, HTN, Hypercholesterolemia and Other (MS, wheelchair bound)
ED Past Surgical History: Appendectomy, Tonsilectomy and Urological (Suprapubic 3-4 years ago)
Social History
Tobacco: Non-smoker
Alcohol: Occasional
Drug: None
Personal:
Living: with family
Review of Systems
Review of Systems
Allergies reviewed?: Yes
All Other Systems: ROS reviewed and negative except as documented in HPI and ROS
Phy Exam
Physical Exam
Physical Exam:
GENERAL: Alert , in no apparent distress
EYE: pupils equal and reactive
NECK: Supple, no significant adenopathy.
ENT: o/p clr, mmm.
CARDIAC: Regular rate and rhythm .
LUNGS: Clear breath sounds bilaterally, no acute respiratory distress, no wheezes/rales/rhonchi
ABDOMEN: Suprapubic catheter in place without over lying or surrounding redness or warmth no tenderness palpation urine does appear to be very cloudy and foul-smelling otherwise abdomen soft, without focal tenderness, no r/g, no cvat
NEUROLOGICAL: Alert and oriented, no focal neuro deficits
SKIN: Warm and dry, skin intact.
MUSCULOSKELETAL: No edema, well perfused.
PSYCH: Normal and appropriate interaction.
Course
Orders/Labs/Results
Orders:
Orders
05/27/24 17:43
Complete Blood Count/With Diff Urgent
Comprehensive Metabolic Panel Urgent
Lactic Acid Q4H
Comment: ON ICE, CANCEL 2ND ORDER IF FIRST LACTIC ACID LEVEL <2
Blood Culture Q30M
TOMMIE Source: Blood/Venous
Specimen Description:
Comment: FROM 2 SEPARATE SITES
Blood Culture Q30M
TOMMIE Source: Blood/Venous
Specimen Description:
Comment: FROM 2 SEPARATE SITES
05/27/24 19:27
0.9% Sodium Chloride 500 ml [Nss] 500 ml IV BOLUS
05/27/24 20:51
Acetaminophen [Tylenol] 1,000 mg PO NOW STA
CefTRIAXone [Rocephin] 2,000 mg IV NOW STA
05/27/24 20:54
Sterile Water [Sterile Water For Injection] 20 ml .ROUTE .[facility]
05/27/24 20:55
Urinalysis Reflex To Culture Urgent
Date Specimen was Collected: 05/27/24
Time Specimen was Collected: 20:52
Urine Microscopic Reflex Cult Urgent
Urine Culture Urgent
TOMMIE Source: U
Specimen Description:
Date Specimen was Collected: 05/27/24
Time Specimen was Collected: 20:52
Abnormal Lab Results
05/27/24 05/27/24
17:43 20:55
WBC 14.5 H 10^3/uL
(4.8-10.8)
Hgb 11.3 L g/dL
(13.0-18.0)
Hct 36.4 L %
(39.0-52.0)
MCV 72.4 L fL
(80.0-94.0)
MCH 22.5 L pg
(27.0-31.0)
MCHC 31.0 L g/dL
(33.0-37.0)
RDW 16.2 H %
(11.5-14.5)
Abs Immat Gran (auto) 0.1 H 10^3/uL
(0-0.05)
Absolute Neuts (auto) 11.1 H 10^3/uL
(1.4-6.5)
Absolute Monos (auto) 1.4 H 10^3/uL
(0.1-0.6)
Neutrophils % 76.8 H %
(42.2-75.2)
Lymphocytes % 9.8 L %
(20.5-51.1)
Monocytes % 9.8 H %
(1.7-9.3)
Sodium 134 L mmol/L
(135-145)
Creatinine 0.6 L mg/dL
(0.7-1.3)
Glucose 114 H mg/dl
(70-99)
Alkaline Phosphatase 159 H U/L
(38-126)
Ur Occult Blood Reflex 4+ A
(Negative)
Leukocyte Esterase Rfl 2+ A
(Negative)
Urine RBC >100 A /HPF
(0-2)
Urine Albumin (Reflex) 2+ A
(Neg - Trace)
05/27/24 17:43
05/27/24 17:43
Vital Signs
Initial and Last Documented VS:
Initial Vital Signs
Temp Pulse Resp Pulse Ox
98.9 F 111 18 93
05/27/24 17:33 05/27/24 17:33 05/27/24 17:33 05/27/24 17:33
Last Documented Vital Signs
Temp Pulse Resp BP Pulse Ox
98.9 F 103 9 156/69 93
05/27/24 17:33 05/27/24 20:30 05/27/24 20:30 05/27/24 19:00 05/27/24 20:30
Procedures
Urinary Catheter
Procedure completed by: Myself
Type of urinary catheter: other (Suprapubic catheter)
Catheter size (panamanian): 18
Urine description: cloudy, yellow and blood tinged
Urine output (ml): 200
MDM/Problems Addressed
MDM/Problems Addressed:
73-year-old male presenting to the emergency department today with concerns of issue with his suprapubic catheter. Upon arrival he had a slight tachycardia but was afebrile. No abdominal tenderness no redness or warmth surrounding the area but the
urine is very cloudy and foul-smelling. Patient was given a dose of IV antibiotics and urine was tested that did show leukocyte Estrace but unable to calculate white blood cells due to significant red blood cells. Patient with likely UTI had
significant improvement of symptoms throughout multiple hours in the ER heart rate improving to the 90s stable for discharge. Advised to return for any worsening symptoms.
*Critical Care Note
Total Time (30-74mins, 75-104mins- exclusive of procedures): Not Applicable
ED Attending Note
-
Portions of this chart may have been created with voice recognition software.� Occasional wrong word or��sound alike� substitutions may have occurred due to the inherent limitations of voice recognition software.
Discharge Plan
Departure
Patient Disposition: Home (Routine Discharge)
Date of Disposition: 05/27/24
Time of Disposition: 22:50
Patient with high blood pressure during this ER visit?: No
Condition: Good
Covid-19: Not Applicable
Discharge Problem:
Acute UTI
Instructions: How to Care for Your [place] Catheter, Male
Prescriptions:
New
cefpodoxime 200 mg tablet
200 mg PO BID 7 Days Qty: 14 0RF
No Action
furosemide [Lasix] 40 MG tablet
40 mg PO BID@0800,1700
venlafaxine [Effexor XR] 75 MG capsule,extended release 24hr
75 mg PO QPM
venlafaxine [Effexor XR] 150 MG capsule,extended release 24hr
150 mg PO DAILY
rosuvastatin 5 MG tablet
5 mg PO HS
dalfampridine [Ampyra] 10 MG tablet extended release 12 hr
10 mg PO BID
fluticasone propionate 50 mcg/actuation [place],Suspension
2 spray INTRANASAL HS
therapeutic multivitamin Tablet
1 tab PO DAILY
amlodipine [Norvasc] 2.5 mg Tablet
2.5 mg PO HS
losartan 25 mg Tablet
25 mg PO DAILY
fluticasone propionate 110 mcg/actuation Hfa Aerosol Inhaler
2 puff INHALATION R BID
baclofen 20 MG tablet
40 mg PO TID Qty: 100 0RF
Rx Instructions:
8 AM, 1PM, 6 PM
cholecalciferol (vitamin D3) 25 mcg (1,000 unit) Tablet
50 mcg PO DAILY
Referrals:
Regulo Bryson DO [Family Provider] -
Activity Restrictions/Additional Instructions:
You came to the emergency department today with concerns of suprapubic catheter issue. This was replaced and you were started on antibiotics. Please follow closely as an outpatient. Return to the emergency department for any worsening, new or
concerning symptoms.
Interventions
Interventions:
*Risk Screen - Suicide Last Done: 05/27/24 17:39
*General Assessment Last Done: 05/27/24 17:39
*Neglect/Abuse Screening Last Done: 05/27/24 17:39
ED- Fall Risk Assessment Last Done: 05/27/24 17:40
*ED COVID-19 Vaccine History Last Done: 05/27/24 17:39
ED-Male Genitourinary Assessment Last Done: 05/27/24 17:39
Discharge Date and Time
Print Language: L[place]
[2024-05-28 00:38] VITALS: BP 108/67
[2024-05-28 03:35] VITALS: BP 123/62
[2024-05-28 06:15] VITALS: BP 124/72
== END 2024-05-28 07:00 | disposition home or self-care (01) ==
LOC: EMR 17:28
PROVIDERS: Physician Assistant; EMERGENCY PHYSICIAN Emergency Medicine; FAMILY PHYSICIAN Family Medicine
DX: N39.0 Urinary tract infection, site not specified (principal); J45.909 Unspecified asthma, uncomplicated; I10 Essential (primary) hypertension; E78.00 Pure hypercholesterolemia, unspecified; G35 Multiple sclerosis; G40.909 Epilepsy, unspecified, not intractable, without status epilepticus; Z87.440 Personal history of urinary (tract) infections; Z90.49 Acquired absence of other specified parts of digestive tract; Z99.3 Dependence on wheelchair
CPT/HCPCS: 99283; 96374; 80053; 81003; 81015; 83605; 85025; 87040; 87086

== ENCOUNTER 2024-10-27 16:26 | Emergency (ER) | payer MEDICARE, SELFPAY ==
[2024-10-27 16:36] VITALS: BP 110/72
[2024-10-27 17:00] VITALS: BP 109/69
--- NOTE | 2024-10-27 17:04 | ED.GENMED ---
History of Present Illness
General
Chief Complaint: Abdominal Symptoms
Source: patient
Time Seen by Provider: 10/27/24 16:41
History of Present Illness
History of Present Illness:
74-year-old male brought to the emergency room by paramedics for evaluation of diarrhea. Patient states that others in his home have a 'GI bug'. He developed diarrhea this morning. He had about 4 episodes. While sitting at the table he began to
feel dizzy and as if he might pass out. He did not actually have a syncopal episode. He feels better from that standpoint. He denies nausea. Patient has MS and is wheelchair-bound. He does not believe he had a fever today. He did take
antibiotics about a week ago for sinus infection (amoxicillin)
Past History
Past History
ED Past Medical History: Asthma, HTN, Hypercholesterolemia and Other (MS, wheelchair bound)
ED Past Surgical History: Appendectomy, Tonsilectomy and Urological (Suprapubic 3-4 years ago)
Social History
Tobacco: Non-smoker
Alcohol: Occasional
Drug: None
Personal:
Living: with family
Phy Exam
Physical Exam
Physical Exam:
General: Awake, Alert, Oriented X3. No acute distress.
Vitals: unremarkable
Head: Atraumatic
Eyes: Pupils equal, EOMI
Throat: Airway intact, no exudates, dry mucosa
Neck: Trachea midline
Lungs: Clear and equal b/l
Heart: Regular rate, no murmurs
Abd: Soft, Nontender, No pulsatile mass
Skin: Warm, dry, no rash
Extremities: pulses equal b/l, no edema
Course
Orders/Labs/Results
Orders:
Orders
10/27/24 17:01
Basic Metabolic Panel Urgent
Complete Blood Count/With Diff Urgent
10/27/24 17:03
0.9% Sodium Chloride 1000 ml [Nss] 1,000 ml IV BOLUS
10/27/24 17:05
Electrocardiogram (*1) Urgent
Reason for Study: Vertigo / Dizzy
Cardiac Monitoring- Treatment ONCE
EKG- Treatment ONCE
Abnormal Lab Results
10/27/24
17:01
WBC 12.8 H 10^3/uL
(4.8-10.8)
MCH 25.7 L pg
(27.0-31.0)
MCHC 31.6 L g/dL
(33.0-37.0)
RDW 16.6 H %
(11.5-14.5)
Abs Immat Gran (auto) 0.1 H 10^3/uL
(0-0.05)
Absolute Neuts (auto) 11.0 H 10^3/uL
(1.4-6.5)
Absolute Lymphs (auto) 0.6 L 10^3/uL
(1.2-3.4)
Absolute Monos (auto) 0.7 H 10^3/uL
(0.1-0.6)
Neutrophils % 86.1 H %
(42.2-75.2)
Lymphocytes % 4.3 L %
(20.5-51.1)
Creatinine 0.5 L mg/dL
(0.7-1.3)
Glucose 119 H mg/dl
(70-99)
10/27/24 17:01
10/27/24 17:01
Vital Signs
Initial and Last Documented VS:
Initial Vital Signs
Temp Pulse Resp BP Pulse Ox
98.7 F 72 15 110/72 96
10/27/24 16:36 10/27/24 16:36 10/27/24 16:36 10/27/24 16:36 10/27/24 16:36
Last Documented Vital Signs
Temp Pulse Resp BP Pulse Ox
97 F 90 18 142/75 98
10/27/24 21:04 10/27/24 21:04 10/27/24 21:04 10/27/24 21:04 10/27/24 21:04
MDM/Problems Addressed
Differential Diagnosis Includes:
Dehydration, vasovagal event, anemia, dysrhythmia, electrolyte abnormality
MDM/Problems Addressed:
Patient did not have diarrheal stool here in the emergency room. Cultures were ordered but not sent because he did not produce a specimen. After hydration he felt better. Labs are reassuring. Patient stable for discharge back to his home
Chronic conditions affecting care: Neurological disorder (Multiple sclerosis)
*Pulse Oximetry
Patient hypoxic: no
*Critical Care Note
Total Time (30-74mins, 75-104mins- exclusive of procedures): Not Applicable
ED Attending Note
-
Portions of this chart may have been created with voice recognition software.� Occasional wrong word or��sound alike� substitutions may have occurred due to the inherent limitations of voice recognition software.
Discharge Plan
Departure
Patient Disposition: Home (Routine Discharge)
Date of Disposition: 10/27/24
Time of Disposition: 20:16
Patient with high blood pressure during this ER visit?: No
Condition: Good
Discharge Problem:
Diarrhea, Near syncope, Dehydration
Instructions: Diarrhea in teens and adults, Dehydration, Adult (DC), Dizziness, Adult ED
Prescriptions:
No Action
furosemide [Lasix] 40 MG tablet
40 mg PO BID@0800,1700
venlafaxine [Effexor XR] 75 MG capsule,extended release 24hr
75 mg PO QPM
venlafaxine [Effexor XR] 150 MG capsule,extended release 24hr
150 mg PO DAILY
rosuvastatin 5 MG tablet
5 mg PO HS
dalfampridine [Ampyra] 10 MG tablet extended release 12 hr
10 mg PO BID
fluticasone propionate 50 mcg/actuation [place],Suspension
2 spray INTRANASAL HS
therapeutic multivitamin Tablet
1 tab PO DAILY
amlodipine [Norvasc] 2.5 mg Tablet
2.5 mg PO HS
losartan 25 mg Tablet
25 mg PO DAILY
fluticasone propionate 110 mcg/actuation Hfa Aerosol Inhaler
2 puff INHALATION R BID
baclofen 20 MG tablet
40 mg PO TID Qty: 100 0RF
Rx Instructions:
8 AM, 1PM, 6 PM
cholecalciferol (vitamin D3) 25 mcg (1,000 unit) Tablet
50 mcg PO DAILY
cefpodoxime 200 mg tablet
200 mg PO BID 7 Days Qty: 14 0RF
Referrals:
Regulo Bryson DO [Family Provider] -
Interventions
Interventions:
*Risk Screen - Suicide Last Done: 10/27/24 16:36
*General Assessment Last Done: 10/27/24 16:36
*Neglect/Abuse Screening Last Done: 10/27/24 16:36
ED- Fall Risk Assessment Last Done: 10/27/24 21:51
*ED COVID-19 Vaccine History Last Done: 10/27/24 19:38
*Nursing Disposition Last Done: 10/27/24 21:51
EC-Tvgvit-[id number] Assessment Last Done: 10/27/24 19:41
Discharge Date and Time
Discharge Date/Time: 10/27/24 21:53
Print Language: [place]
[2024-10-27 17:14] LABS: % Basophils 0.3 % (0-2); % Eosinophils 3.2 % (0-6); % Immature Granulocytes 0.5 % (0-0.5); % Lymphocytes 4.3 % (20.5-51.1); % Monocytes 5.6 % (1.7-9.3); % Neutrophils 86.1 % (42.2-75.2); Absolute Eosinophils 0.4 10^3/uL (0-0.7); Absolute Immature Granulocytes 0.1 10^3/uL (0-0.05); Absolute Lymphocytes 0.6 10^3/uL (1.2-3.4); Absolute Monocytes 0.7 10^3/uL (0.1-0.6); Hematocrit 43.1 % (39.0-52.0); Hemoglobin 13.6 g/dL (13.0-18.0); Mean Corp Hgb Conc. 31.6 g/dL (33.0-37.0); Mean Corpuscular Hgb 25.7 pg (27.0-31.0); Mean Corpuscular Volume 81.3 fL (80.0-94.0); Mean Platelet Volume 9.5 fL (7.4-10.4); Nucleated Red Blood Cells % 0 % (-); Platelet Count 266 10^3/uL (130-400); Red Cell Dist. Width 16.6 % (11.5-14.5); White Blood Cell Count 12.8 10^3/uL (4.8-10.8)
[2024-10-27] MEDS: NSS 1000 IV (17:28)
[2024-10-27 17:40] LABS: Blood Urea Nitrogen 15 mg/dl (9-20); Calcium 8.8 mg/dl (8.4-10.2); Carbon Dioxide 27 mmol/L (22-30); Chloride 100 mmol/L (98-107); Estimated Creatinine Clearance 116 ml/min; Glucose 119 mg/dl (70-99); Sodium 139 mmol/L (135-145); eGFR > 60.00
[2024-10-27 18:00] VITALS: BP 141/81
[2024-10-27 19:00] VITALS: BP 130/80
[2024-10-27 20:00] VITALS: BP 128/72
[2024-10-27 21:04] VITALS: BP 142/75
== END 2024-10-27 21:53 | disposition home or self-care (01) ==
LOC: EMR 16:26
PROVIDERS: EMERGENCY PHYSICIAN Emergency Medicine; FAMILY PHYSICIAN Family Medicine
DX: E86.0 Dehydration (principal); R55 Syncope and collapse; R19.7 Diarrhea, unspecified; J45.909 Unspecified asthma, uncomplicated; I10 Essential (primary) hypertension; E78.00 Pure hypercholesterolemia, unspecified; G35 Multiple sclerosis; Z99.3 Dependence on wheelchair; Z90.49 Acquired absence of other specified parts of digestive tract
CPT/HCPCS: 99284; 96360; 80048; 85025; 93005